=== PATIENT | male | born 1945 | race Caucasian/White ===

== ENCOUNTER → 2017-10-23 | Outpatient (CLI) | payer MEDICARE, OTHER ==
[~2017-10-23] MED LIST: ACTONEL; ALEN70TA47 PO; AMLO10TA82 PO; ATEN100T88 PO; ATN50T; CLR7.5T; FLUO20CA25 PO; FLX20C; GLYB5TAB6 PO; HCT25T; HYDR1TAB PO; LISI40TA PO; LORA1TAB5 PO; LSRT50T; MTF500T PO; NORVASC; OMEP20CA12; PNT40TEC PO; SIMV20TA3 PO; TRM50T PO
[2017-10-23 15:15] LABS: ALANINE AMINOTRANSFERASE 99 U/L (0-55); ALBUMIN 4.4 GM/DL (3.2-4.5); ALKALINE PHOSPHATASE 78 U/L (40-136); BILIRUBIN,TOTAL 0.9 MG/DL (0.1-1.0); BUN/CREATININE RATIO 13; CALCIUM 9.5 MG/DL (8.5-10.1); CARBON DIOXIDE 18 MMOL/L (21-32); CHLORIDE 106 MMOL/L (98-107); CHOLESTEROL 175 MG/DL (< 200); CREATININE SERUM 0.89 MG/DL (0.60-1.30); GFR ESTIMATED > 60; GLUCOSE 107 MG/DL (70-105); HDL CHOLESTEROL 47 MG/DL (40-60); POTASSIUM 4.5 MMOL/L (3.6-5.0); SODIUM 137 MMOL/L (135-145); TOTAL PROTEIN 7.8 GM/DL (6.4-8.2); TRIGLYCERIDES 179 MG/DL (<150); VLDL CHOLESTEROL 36 MG/DL (5-40)
== END ==
LOC: LAB 14:35
PROVIDERS: ATTEND Family Medicine
DX: E11.9 Type 2 diabetes mellitus without complications (principal); I10 Essential (primary) hypertension
CPT/HCPCS: 36415; 80053; 80061; 83036

== ENCOUNTER → 2018-04-28 | Outpatient (CLI) | payer MEDICARE ==
[2018-04-28 14:42] LABS: ALANINE AMINOTRANSFERASE 75 U/L (0-55); ALBUMIN 4.3 GM/DL (3.2-4.5); ALKALINE PHOSPHATASE 79 U/L (40-136); BILIRUBIN,TOTAL 0.8 MG/DL (0.1-1.0); BUN/CREATININE RATIO 15; CALCIUM 9.6 MG/DL (8.5-10.1); CARBON DIOXIDE 18 MMOL/L (21-32); CHLORIDE 105 MMOL/L (98-107); CREATININE SERUM 0.88 MG/DL (0.60-1.30); GFR ESTIMATED > 60; GLUCOSE 95 MG/DL (70-105); POTASSIUM 4.6 MMOL/L (3.6-5.0); SODIUM 137 MMOL/L (135-145); TOTAL PROTEIN 7.8 GM/DL (6.4-8.2)
== END ==
LOC: LAB 14:01
PROVIDERS: ATTEND Family Medicine
DX: E11.9 Type 2 diabetes mellitus without complications (principal); I10 Essential (primary) hypertension; R74.8 Abnormal levels of other serum enzymes
CPT/HCPCS: 36415; 80053; 83036

== ENCOUNTER → 2019-04-27 | Outpatient (CLI) | payer MEDICARE ==
[2019-04-27 15:39] LABS: ALANINE AMINOTRANSFERASE 62 U/L (0-55); ALBUMIN 4.4 GM/DL (3.2-4.5); ALKALINE PHOSPHATASE 72 U/L (40-136); BUN/CREATININE RATIO 11; CALCIUM 9.6 MG/DL (8.5-10.1); CARBON DIOXIDE 22 MMOL/L (21-32); CHLORIDE 105 MMOL/L (98-107); CHOLESTEROL 167 MG/DL (< 200); CREATININE SERUM 1.04 MG/DL (0.60-1.30); GFR ESTIMATED > 60; GLUCOSE 102 MG/DL (70-105); HDL CHOLESTEROL 51 MG/DL (40-60); POTASSIUM 4.8 MMOL/L (3.6-5.0); SODIUM 137 MMOL/L (135-145); TOTAL PROTEIN 7.8 GM/DL (6.4-8.2); TRIGLYCERIDES 158 MG/DL (<150); VLDL CHOLESTEROL 32 MG/DL (5-40)
== END ==
LOC: LAB 15:00
PROVIDERS: ATTEND Family Medicine
DX: E78.5 Hyperlipidemia, unspecified (principal); E11.9 Type 2 diabetes mellitus without complications; I10 Essential (primary) hypertension
CPT/HCPCS: 36415; 80053; 80061; 83036

== ENCOUNTER → 2019-10-28 | Outpatient (CLI) | payer MEDICARE ==
[2019-10-28 11:38] LABS: ALBUMIN 4.5 GM/DL (3.2-4.5); CHLORIDE 104 MMOL/L (98-107); POTASSIUM 4.7 MMOL/L (3.6-5.0); SODIUM 138 MMOL/L (135-145)
[2019-10-28 11:39] LABS: CALCIUM 9.5 MG/DL (8.5-10.1)
[2019-10-28 11:40] LABS: TOTAL PROTEIN 8.2 GM/DL (6.4-8.2); TRIGLYCERIDES 210 MG/DL (<150); VLDL CHOLESTEROL 42 MG/DL (5-40)
[2019-10-28 11:41] LABS: CARBON DIOXIDE 23 MMOL/L (21-32); GLUCOSE 129 MG/DL (70-105)
[2019-10-28 11:44] LABS: ALKALINE PHOSPHATASE 74 U/L (40-136); CREATININE SERUM 0.97 MG/DL (0.60-1.30); GFR ESTIMATED > 60
[2019-10-28 11:45] LABS: BUN/CREATININE RATIO 14; CHOLESTEROL 165 MG/DL (< 200)
[2019-10-28 11:46] LABS: HDL CHOLESTEROL 50 MG/DL (40-60)
[2019-10-28 11:47] LABS: ALANINE AMINOTRANSFERASE 63 U/L (0-55)
== END ==
LOC: LAB 10:55
PROVIDERS: ATTEND Family Medicine
DX: E11.9 Type 2 diabetes mellitus without complications (principal); N40.0 Benign prostatic hyperplasia without lower urinary tract symptoms; I10 Essential (primary) hypertension
CPT/HCPCS: 36415; 80053; 80061; 83036; 84153

== ENCOUNTER 2023-03-14 05:27 | Outpatient (CLI) | payer MEDICARE ==
[~2023-03-14] VITALS: Ht 177.8 cm; Wt 99.1 kg
[2023-03-14] MEDS ORDERED: BACI1TAB24 PO (08:41)
[2023-03-14] MEDS ORDERED: COLE625T14 PO (08:41)
[2023-03-14] MEDS ORDERED: EMPA10TA PO (08:41)
[2023-03-14] MEDS ORDERED: ATOR20TA66 PO (08:41)
[2023-03-14] MEDS ORDERED: PSYL3.4P5 PO (08:41)
== END 2023-03-14 08:49 | disposition home or self-care (01) ==
LOC: PREOP 05:27
PROVIDERS: ATTEND Specialist
DX: Z01.818 Encounter for other preprocedural examination (principal)

== ENCOUNTER 2023-03-21 05:49 | Day surgery (SDC) | payer MEDICARE ==
[~2023-03-21] VITALS: Ht 177.8 cm; Wt 99.1 kg
[~2023-03-21 05:49] MED LIST changes: +ATOR20TA66 PO; +BACI1TAB24 PO; +COLE625T14 PO; +EMPA10TA PO; +PSYL3.4P5 PO
[2023-03-21] MEDS: TETRACAINE 0.5% OPHTH SOLN 4 ML BTL (SINGLE DOSE ONLY) OU PRN ×4 (06:09→06:43)
[2023-03-21] MEDS ORDERED: POVIDONE IODINE OPHTH SOLN 5% 30 ML OP ONE (06:15)
[2023-03-21] MEDS ORDERED: MOXIFLOXACIN OPHTH SOLN 5 MG/ML 0.5 ML SYRINGE OP ONE (06:15)
[2023-03-21] MEDS ORDERED: LIDOCAINE PF 1% 2 ML VIAL IR PRN (06:15)
[2023-03-21] MEDS ORDERED: TIMOLOL 0.5% (CATARACTS) 0.3 ML BTL OU PRN (06:15)
[2023-03-21] MEDS: TROPICAMIDE 1% OPH SOLN (MYDRIACYL) 15 ML BTL OP SCH ×3 (06:23→06:44)
[2023-03-21] MEDS: PHENYLEPHRINE 10% OPHTH SOLN 5 ML BTL OU SCH ×3 (06:23→06:43)
[2023-03-21 06:26] VITALS: BP 153/78
[2023-03-21] MEDS ORDERED: MIDAZOLAM INJ 2 MG/2 ML VIAL ONE (07:08)
--- NOTE | 2023-03-21 07:11 | Ophthalmologist Pre-Op Note ---
Pre-Operative Progress Note H&P Reviewed The H&P was reviewed, patient examined and no changes noted. Date H&P Reviewed: Mar 21, 2023 Time H&P Reviewed: 07:01 Pre-Op Dx Cataract, Left Eye SABRINA LEBLANC MD Mar 21, 2023 07:11
--- NOTE | 2023-03-21 07:27 | Ophthalmology Operative Report ---
Cataract removal/placement IOL PREOPERATIVE DIAGNOSIS: Cataract Left Eye POSTOPERATIVE DIAGNOSIS: Cataract Left Eye PROCEDURE: Cataract removal and placement of posterior chamber implant, left eye SURGEON: Yang Leblanc ANESTHESIA: Topical with sedation COMPLICATIONS: None ESTIMATED BLOOD LOSS: Minimal DESCRIPTION OF PROCEDURE: After proper informed consent was obtained, the patient, a 77 male, was taken to the Operating Room and the left eye was anesthetized with tetracaine. The left eye was then prepped and draped in the usual manner. A wire lid speculum was placed. A paracentesis was made at the left hand position. Preservative free lidocaine was injected into the anterior chamber followed by viscoelastic. A clear corneal incision was made in the temporal position. A capsulorrhexis was preformed and the central nuclear and cortical material were removed. The posterior capsule was polished and an Bennett 20.0 [id number] was placed into the capsular bag. The residual viscoelastic was aspirated and balanced saline solution was injected into the anterior chamber. Moxifloxacin was injected into the anterior chamber. The wound was checked and found to be water tight. The patient tolerated the procedure well without complications. YANG LEBLANC MD Mar 21, 2023 07:27
[2023-03-21 07:31] VITALS: BP 141/70
--- NOTE | 2023-03-21 12:08 | Anesthesia-General Post-Op ---
MAC Patient Condition Mental Status/LOC: Same as Preop Cardiovascular: Satisfactory Nausea/Vomiting: Absent Respiratory: Satisfactory Pain: Controlled Complications: Absent Post Op Complications Complications None Follow Up Care/Instructions Patient Instructions None needed. Anesthesiology Discharge Order Discharge Order Patient is doing well, no complaints, stable vital signs, no apparent adverse anesthesia problems. No complications reported per nursing. JOHAN SARGENT CRNA Mar 21, 2023 12:08
== END 2023-03-21 07:35 | disposition home or self-care (01) ==
LOC: SDC 05:49
PROVIDERS: ATTEND Specialist
DX: E11.36 Type 2 diabetes mellitus with diabetic cataract (principal); H25.9 Unspecified age-related cataract; Z79.84 Long term (current) use of oral hypoglycemic drugs
CPT/HCPCS: 66984; 82947; V2632

== ENCOUNTER 2023-03-27 07:58 | Outpatient (CLI) | payer MEDICARE ==
[~2023-03-27] VITALS: Ht 177.8 cm; Wt 107.3 kg
== END 2023-03-27 16:05 | disposition home or self-care (01) ==
LOC: PREOP 07:58
PROVIDERS: ATTEND Specialist
DX: Z01.818 Encounter for other preprocedural examination (principal)

== ENCOUNTER 2023-04-04 06:07 | Day surgery (SDC) | payer MEDICARE ==
[~2023-04-04] VITALS: Ht 177 cm; Wt 107.3 kg
[2023-04-04 06:10] VITALS: BP 164/83
[2023-04-04] MEDS ORDERED: POVIDONE IODINE OPHTH SOLN 5% 30 ML OP ONE (06:15)
[2023-04-04] MEDS ORDERED: LIDOCAINE PF 1% 2 ML VIAL IR PRN (06:15)
[2023-04-04] MEDS ORDERED: TIMOLOL 0.5% (CATARACTS) 0.3 ML BTL OU PRN (06:15)
[2023-04-04] MEDS ORDERED: MOXIFLOXACIN OPHTH SOLN 5 MG/ML 0.5 ML SYRINGE OP ONE (06:15)
[2023-04-04] MEDS ORDERED: TETRACAINE 0.5% OPHTH SOLN 5 ML BTL OD ONE (06:20)
[2023-04-04] MEDS: TETRACAINE 0.5% OPHTH SOLN 4 ML BTL (SINGLE DOSE ONLY) OU PRN ×4 (06:20→06:31)
[2023-04-04] MEDS: TROPICAMIDE 1% OPH SOLN (MYDRIACYL) 15 ML BTL OP SCH ×3 (06:25→06:32)
[2023-04-04] MEDS: PHENYLEPHRINE 10% OPHTH SOLN 5 ML BTL OU SCH ×3 (06:26→06:32)
--- NOTE | 2023-04-04 06:51 | Ophthalmologist Pre-Op Note ---
Pre-Operative Progress Note H&P Reviewed The H&P was reviewed, patient examined and no changes noted. Date H&P Reviewed: Apr 04, 2023 Time H&P Reviewed: 06:50 Pre-Op Dx Cataract, Right Eye SABRINA LEBLANC MD Apr 04, 2023 06:51
[2023-04-04] MEDS ORDERED: MIDAZOLAM INJ 2 MG/2 ML VIAL ONE (06:56)
--- NOTE | 2023-04-04 07:17 | Ophthalmology Operative Report ---
Cataract removal/placement IOL PREOPERATIVE DIAGNOSIS: Cataract Right Eye POSTOPERATIVE DIAGNOSIS: Cataract Right Eye PROCEDURE: Cataract removal and placement of posterior chamber implant, right eye SURGEON: Yang Leblanc ANESTHESIA: Topical with sedation COMPLICATIONS: None ESTIMATED BLOOD LOSS: Minimal DESCRIPTION OF PROCEDURE: After proper informed consent was obtained, the patient, a 77 male, was taken to the Operating Room and the right eye was anesthetized with tetracaine. The right eye was then prepped and draped in the usual manner. A wire lid speculum was placed. A paracentesis was made at the left hand position. Preservative free lidocaine was injected into the anterior chamber followed by viscoelastic. A clear corneal incision was made in the temporal position. A capsulorrhexis was preformed and the central nuclear and cortical material were removed. The posterior capsule was polished and Bennett 20.5 [id number] IOL was placed into the capsular bag. The residual viscoelastic was aspirated and balanced saline solution was injected into the anterior chamber. Moxifloxacin was injected into the anterior chamber. The wound was checked and found to be water tight. The patient tolerated the procedure well without complications. YANG LEBLANC MD Apr 04, 2023 07:17
[2023-04-04 07:22] VITALS: BP 169/72
--- NOTE | 2023-04-04 12:42 | Anesthesia-General Post-Op ---
MAC Patient Condition Mental Status/LOC: Same as Preop Cardiovascular: Satisfactory Nausea/Vomiting: Absent Respiratory: Satisfactory Pain: Controlled Complications: Absent Post Op Complications Complications None Follow Up Care/Instructions Patient Instructions None needed. Anesthesiology Discharge Order Discharge Order Patient is doing well, no complaints, stable vital signs, no apparent adverse anesthesia problems. No complications reported per nursing. SANTOS MTZ CRNA Apr 04, 2023 12:42
== END 2023-04-04 07:26 | disposition home or self-care (01) ==
LOC: SDC 06:07
PROVIDERS: ATTEND Specialist
DX: E11.36 Type 2 diabetes mellitus with diabetic cataract (principal); H25.9 Unspecified age-related cataract; Z79.84 Long term (current) use of oral hypoglycemic drugs
CPT/HCPCS: 66984; 82947; V2632

== ENCOUNTER 2023-04-05 13:51 | Inpatient (IN) | payer MEDICARE ==
[~2023-04-05] VITALS: Ht 175 cm; Wt 99.7 kg
--- NOTE | 2023-04-05 14:11 | ED General ---
General Chief Complaint: Abdominal/GI Problems Stated Complaint: N/V/D Nursing Triage Note: N/V/D SINCE LAST NIGHT. PT REPORTS DRY COUGH. PT HAD CATARACT SURGERY YESTERDAY SO EYE PATCH ON RT EYE PRESENT. Source of Information: Patient Exam Limitations: No Limitations History of Present Illness Date Seen by Provider: Apr 05, 2023 Time Seen by Provider: 13:57 Initial Comments Here with report of having cataract surgery yesterday and started having dry cough and chills overnight and then fever, chills and weakness today. Reports that he is vaccinated for flu and did have the COVID series vaccinations but not the one this year. He has not had COVID previously. Denies nausea or vomiting but complains of significant weakness and feels dry. Denies diarrhea. Timing/Duration: 24 Hours, Getting Worse Severity: Moderate Associated Systoms: Cough, Fever/Chills, Shortness of Air, Weakness Allergies and Home Medications Allergies Uncoded Allergies: SULFA (Allergy, Unknown, HIVES, 04/05/23) Patient Home Medication List Home Medication List Reviewed: Yes Amlodipine Besylate (Norvasc Tablet) 10 Mg Tablet, 1 EACH PO DAILY, (Reported) Entered as Reported by: MYRIAM COLE on 06/12/12 1231 Atenolol (Tenormin 100 Mg) 100 Mg Tablet, 1 EACH PO DAILY, (Reported) Entered as Reported by: MYRIAM COLE on 06/12/12 0922 Atorvastatin Calcium (Atorvastatin Calcium) 20 Mg Tablet, 20 MG PO HS, (Reported) Entered as Reported by: Ness De Los Santos on 03/14/23 0841 Bacillus Coagulans (Probiotic) 1 Billion Cell Tab.chew, 1 EACH PO DAILY, (Reported) Entered as Reported by: Ness De Los Santos on 03/14/23 0841 Colesevelam HCl (Colesevelam HCl) 625 Mg Tablet, 625 MG PO BID, (Reported) Entered as Reported by: Ness De Los Santos on 03/14/23 0841 Empagliflozin (Jardiance) 10 Mg Tablet, 10 MG PO DAILY, (Reported) Entered as Reported by: Ness De Los Santos on 03/14/23 0841 Lisinopril (Prinivil) 40 Mg Tablet, 40 MG PO DAILY, (Reported) Entered as Reported by: MYRIAM COLE on 06/12/12 1231 Loratadine/Pseudoephedrine (Claritin-D 24 Hour Tab Er) 1 Tab.sr .24 H Tab.sr.24h, 1 EACH PO DAILY, (Reported) Entered as Reported by: MYRIAM COLE on 06/12/12 1231 Psyllium Husk/Aspartame (Metamucil Fiber Singles Packet) 3.4 Gram Powd.pack, 3.4 GM PO DAILY, (Reported) Entered as Reported by: Ness De Los Santos on 03/14/23 0841 Review of Systems Review of Systems Constitutional: see HPI, chills, fever EENTM: nose congestion Respiratory: cough, short of breath Cardiovascular: No chest pain Gastrointestinal: No nausea, No vomiting Genitourinary: no symptoms reported Musculoskeletal: muscle pain Psychiatric/Neurological: Weakness Past Hsnjssb-Vudlfu-Wkktga Hx Patient Social History Tobacco Use?: No Use of E-Cig and/or Vaping dev: No Substance use?: No Alcohol Use?: No Past Medical History Surgeries: Yes Eye Surgery Respiratory: No Cardiac: Yes Hypertension Reproductive Disorders: No Gastrointestinal: No Diabetes, Non-Insulin dep HEENT: Yes Cataract Anxiety, Depression Physical Exam-Suspected Sepsis Physical Exam Vital Signs Vital Signs - First Documented 04/05/23 13:53 Temp 38.7 Pulse 78 Resp 20 B/P (MAP) 171/90 (117) Pulse Ox 98 O2 Delivery Room Air Capillary Refill : Less Than 3 Seconds Blood Pressure Mean: 117 Height, Weight, BMI Height: '" Weight: lbs. oz. kg; 32.00 BMI Method:Stated General Appearance: WD/WN, Mild Distress HEENT: PERRL/EOMI, Pharynx Normal Neck: Non Tender, Supple Respiratory: Lungs Clear, Normal Breath Sounds, Other (Coarse cough) Cardiovascular: Regular Rate, Rhythm, No Murmur Gastrointestinal: Non Tender, Soft Extremity: Normal Range of Motion, Non Tender Neurologic/Psychiatric: Alert, Oriented x3 Skin: pallor Comments Eye shield over right Focused Exam Lactate Level 04/05/23 14:10: Lactic Acid Level 1.68 Lactic Acid Level Laboratory Tests Test 04/05/23 14:10 Lactic Acid Level 1.68 MMOL/L (0.50-2.00) Progress/Results/Core Measures Suspected Sepsis SIRS Temperature: Pulse: 78 Respiratory Rate: 20 Laboratory Tests 04/05/23 14:10: White Blood Count 9.2 Blood Pressure 171 /90 Mean: 117 04/05/23 14:10: Lactic Acid Level 1.68 Laboratory Tests 04/05/23 14:10: Creatinine 0.94, INR Comment 1.3, Platelet Count 126L, Total Bilirubin 1.4H Results/Orders Lab Results Laboratory Tests Test 04/05/23 14:10 04/05/23 15:52 Range/Units White Blood Count 9.2 4.3-11.0 10^3/uL Red Blood Count 4.55 4.30-5.52 10^6/uL Hemoglobin 12.8 L 13.3-17.7 g/dL Hematocrit 40 40-54 % Mean Corpuscular Volume 88 80-99 fL Mean Corpuscular Hemoglobin 28 25-34 pg Mean Corpuscular Hemoglobin Concent 32 32-36 g/dL Red Cell Distribution Width 15.1 H 10.0-14.5 % Platelet Count 126 L 130-400 10^3/uL Mean Platelet Volume 10.1 9.0-12.2 fL Immature Granulocyte % (Auto) 0 % Neutrophils (%) (Auto) 77 H 42-75 % Lymphocytes (%) (Auto) 16 12-44 % Monocytes (%) (Auto) 6 0-12 % Eosinophils (%) (Auto) 0 0-10 % Basophils (%) (Auto) 0 0-10 % Neutrophils # (Auto) 7.1 1.8-7.8 10^3/uL Lymphocytes # (Auto) 1.5 1.0-4.0 10^3/uL Monocytes # (Auto) 0.6 0.0-1.0 10^3/uL Eosinophils # (Auto) 0.0 0.0-0.3 10^3/uL Basophils # (Auto) 0.0 0.0-0.1 10^3/uL Immature Granulocyte # (Auto) 0.0 0.0-0.1 10^3/uL Percent Immature Platelet Fraction 2.2 0.0-7.6 % Prothrombin Time 17.0 H 12.2-14.7 SEC INR Comment 1.3 0.8-1.4 Activated Partial Thromboplast Time 30 24-35 SEC Sodium Level 134 L 135-145 MMOL/L Potassium Level 4.5 3.6-5.0 MMOL/L Chloride Level 104 98-107 MMOL/L Carbon Dioxide Level 21 21-32 MMOL/L Anion Gap 9 5-14 MMOL/L Blood Urea Nitrogen 15 7-18 MG/DL Creatinine 0.94 0.60-1.30 MG/DL Estimat Glomerular Filtration Rate 83 BUN/Creatinine Ratio 16 Glucose Level 95 70-105 MG/DL Lactic Acid Level 1.68 0.50-2.00 MMOL/L Calcium Level 8.6 8.5-10.1 MG/DL Corrected Calcium 9.2 8.5-10.1 MG/DL Total Bilirubin 1.4 H 0.1-1.0 MG/DL Aspartate Amino Transf (AST/SGOT) 39 H 5-34 U/L Alanine Aminotransferase (ALT/SGPT) 30 0-55 U/L Alkaline Phosphatase 270 H 40-136 U/L C-Reactive Protein High Sensitivity 3.73 H 0.00-0.50 MG/DL Total Protein 7.4 6.4-8.2 GM/DL Albumin 3.3 3.2-4.5 GM/DL Influenza Type A (RT-PCR) Not Detected Not Detecte Influenza Type B (RT-PCR) Not Detected Not Detecte SARS-CoV-2 RNA (RT-PCR) Detected H Not Detecte My Orders Orders - FIDELIA TAVARES MD Cbc And Automated Diff (04/05/23 14:06) Comprehensive Metabolic Panel (04/05/23 14:06) Blood Culture (04/05/23 14:06) Sputum Culture (04/05/23 14:06) Urinalysis (04/05/23 14:06) Urine Culture (04/05/23 14:06) Protime With Inr (04/05/23 14:06) Partial Thromboplastin Time (04/05/23 14:06) Chest 1 View, Ap/Pa Only (04/05/23 14:06) Ed Iv/Invasive Line Start (04/05/23 14:06) Vital Signs Adult Sepsis Patie Q15M (04/05/23 14:06) O2 (04/05/23 14:06) Remove Rings In Anticipation O (04/05/23 14:06) Lactic Acid Analyzer (04/05/23 14:06) Influenza A And B By Pcr (04/05/23 14:06) Ed Iv/Invasive Line Start (04/05/23 14:06) Ns Iv 500 Ml (Ns Iv 500 Ml) (04/05/23 14:15) Hs C Reactive Protein (04/05/23 14:06) Covid 19 Inhouse Test (04/05/23 14:06) Ns Iv 500 Ml (Ns Iv 500 Ml) (04/05/23 15:30) Acetaminophen Tablet (Acetaminophen Ta (04/05/23 15:17) Code/Resuscitation (04/05/23 15:50) Ed Admission (Communication) (04/05/23 15:50) Medications Given in ED Current Medications Medications Dose Ordered Sig/Joelle Route Start Time Stop Time Status Last Admin Dose Admin Sodium Chloride 500 ml @ 0 mls/hr Q0M ONCE IV 04/05/23 14:15 04/05/23 14:16 DC 04/05/23 14:15 0 MLS/HR Sodium Chloride 500 ml @ 0 mls/hr Q0M ONCE IV 04/05/23 15:30 04/05/23 15:31 DC 04/05/23 15:30 0 MLS/HR Vital Signs/I&O 04/05/23 04/05/23 13:53 15:29 Temp 38.7 38.0 Pulse 78 Resp 20 B/P (MAP) 171/90 (117) Pulse Ox 98 O2 Delivery Room Air Capillary Refill : Less Than 3 Seconds Blood Pressure Mean: 117 Progress Note : Progress Note Seen and evaluated. Initiate sepsis protocol including IV, labs including CBC, CMP, coags, cultures, lactic acid, UA, influenza and COVID testing. We will also get CRP. Normal saline 500 mL bolus ordered. Chest x-ray ordered. Monitor patient. 1530: CBC shows normal white count with slightly low hemo globin and slightly low platelets but no left shift. Coags show slightly elevated PTT but normal INR. Chemistries show grossly normal CMP with slightly elevated alk phos and normal lactic acid. CRP is elevated at 3.7. Influenza is negative and COVID is positive. We are pending UA. Chest x-ray shows some basilar atelectasis without infiltrate on my interpretation. Patient has been unable to urinate. We will go ahead and give a repeat dose of normal saline 500 mL bolus. 1544: Given COVID positive status and patient's increased weakness and that he lives alone, we will go ahead and admit the patient. I did discuss CODE STATUS with the patient and he is requesting DNR. I did discuss the case with family life educator on-call Dr. Huggins, who accepts patient for admission, observation status. Discussed with patient who agrees with plan. Pending UA. Inpatient team to follow. Diagnostic Imaging Diagonstic Imaging: Xray Plain Films/CT/US/NM/MRI: chest Comments [facility] [place], [place] NAME: SEAN BATISTA [facility] REC#: [id number] PT STATUS: REG ER : 1945 PHYSICIAN: FIDELIA TAVARES MD ADMIT DATE: 04/05/23/ER Signed Date of Exam:04/05/23 CHEST 1 VIEW, AP/PA ONLY INDICATION: Nausea, vomiting, diarrhea, cough. FINDINGS: There is elevated right diaphragm. There is some patchy bibasilar atelectasis. Heart size upper limits. IMPRESSION: Limited inspiration with an elevated right diaphragm and mild basilar atelectasis. Dictated by: Dictated on workstation # [id number] Dict: 04/05/23 1437 Trans: 04/05/23 1501 [id number] Interpreted by: ANGEL LUIS PRINGLE Electronically signed by: ANGEL LUIS PRINGLE 04/05/23 1501 Departure Communication (Admissions) Time/Spoke to Admitting Phy: 15:44 Impression Primary Impression: COVID-19 Additional Impressions: Weakness Dehydration Disposition: ADMITTED INPATIENT Condition: Stable Admissions Decision to Admit Reason: Admit from ER (General) Decision to Admit/Date: Apr 05, 2023 Time/Decision to Admit Time: 15:44 Departure-Patient Inst. Referrals: BOLIVAR MIRANDA MD (PCP/Family) Primary Care Physician FIDELIA TAVARES MD Apr 05, 2023 14:11
[2023-04-05] MEDS ORDERED: NS IV 500 ML 500 ML IV ONE ×2 (14:15→15:30)
[2023-04-05 14:25] LABS: BASOPHILS % (AUTO) 0 % (0-10); HEMOGLOBIN 12.8 g/dL (13.3-17.7); MONOCYTES # (AUTO) 0.6 10^3/uL (0.0-1.0)
[2023-04-05 14:27] LABS: EOSINOPHILS % (AUTO) 0 % (0-10); HEMATOCRIT 40 % (40-54); LYMPHOCYTES # (AUTO) 1.5 10^3/uL (1.0-4.0); LYMPHOCYTES % (AUTO) 16 % (12-44); MEAN CORPUSCULAR HEMOGLOBIN 28 pg (25-34); MEAN CORPUSCULAR HGB CONC 32 g/dL (32-36); MEAN CORPUSCULAR VOLUME 88 fL (80-99); MEAN PLATELET VOLUME 10.1 fL (9.0-12.2); MONOCYTES % (AUTO) 6 % (0-12); NEUTROPHILS # (AUTO) 7.1 10^3/uL (1.8-7.8); NEUTROPHILS % (AUTO) 77 % (42-75); PLATELET COUNT 126 10^3/uL (130-400); WHITE BLOOD COUNT 9.2 10^3/uL (4.3-11.0)
[2023-04-05 14:29] LABS: ALBUMIN 3.3 GM/DL (3.2-4.5); POTASSIUM 4.5 MMOL/L (3.6-5.0)
[2023-04-05 14:30] LABS: CALCIUM 8.6 MG/DL (8.5-10.1); INR 1.3 (0.8-1.4)
[2023-04-05 14:31] LABS: TOTAL PROTEIN 7.4 GM/DL (6.4-8.2)
[2023-04-05 14:33] LABS: BILIRUBIN,TOTAL 1.4 MG/DL (0.1-1.0)
[2023-04-05 14:35] LABS: CREATININE SERUM 0.94 MG/DL (0.60-1.30)
--- NOTE | 2023-04-05 14:48 | Diagnostic Imaging Report ---
INDICATION: Nausea, vomiting, diarrhea, cough. FINDINGS: There is elevated right diaphragm. There is some patchy bibasilar atelectasis. Heart size upper limits. IMPRESSION: Limited inspiration with an elevated right diaphragm and mild basilar atelectasis. Dictated by: Dictated on workstation # [id number]
[2023-04-05] MEDS ORDERED: ACETAMINOPHEN 325 MG TABLET PO STA (15:17)
[2023-04-05 16:14] LABS: CLARITY,URINE CLEAR; COLOR,URINE YELLOW
[2023-04-05 16:15] LABS: BACTERIA,URINE TRACE /HPF; BILIRUBIN,URINE NEGATIVE (NEGATIVE); GLUCOSE, URINE (UA) 2+ (NEGATIVE); HYALINE CASTS, URINE RARE /LPF; KETONES,URINE TRACE (NEGATIVE); LEUKOCYTE ESTERASE ,URINE NEGATIVE (NEGATIVE); NITRITE,URINE NEGATIVE (NEGATIVE); PROTEIN,URINE TRACE (NEGATIVE); RBC,URINE RARE /HPF; WBC,URINE RARE /HPF
--- NOTE | 2023-04-05 16:40 | History & Physical-Hospitalist ---
ALISON VUONG MD, RESIDENT 04/05/23 1639: History of Present Illness HPI/Chief Complaint CC: Weakness Patient is a 77-year-old male with past medical history of diabetes, hypertension, IBS who presented with weakness. He states that he had cataract surgery on his right eye on Friday. After completing the surgery, he started to have swelling in his throat. He notes that he then developed fever and chills. He found it difficult to ambulate and walk around. He had significant weakness thus he presented to the ED for further evaluation. He does live alone at home. In the ED he was noted to have a fever to 38.7. His blood pressure was elevated as he has not been able to take his blood pressure medications as of yet this morning. CRP is elevated. Also noted to have mildly elevated liver enzymes. He was noted to be COVID-positive. Due to his weakness, he was ultimately admitted in observation status for further management. Of note, patient is DNR. Date Seen 04/05/23 Time Seen by a Provider: 15:30 Attending Physician Johnie Hernández MD PCP Admitting Physician: Jaylene Elizalde DO Attending Physician: Jaylene Elizalde DO Referring Physician Date of Admission Apr 05, 2023 at 16:13 Home Medications & Allergies Home Medications Reviewed patient Home Medication Reconciliation performed by pharmacy medication reconciliations chemical lab technician and/or nursing. Patients Allergies have been reviewed. Allergies Allergies Uncoded Allergies SULFA ( Allergy, Unknown, HIVES, 04/05/23) Past Mmmikqt-Qgskgy-Wvalsk Hx Patient Social History Tobacco Use?: No Use of E-Cig and/or Vaping dev: No Substance use?: No Alcohol Use?: No Immunizations Up To Date Date of Influenza Vaccine: Feb 01, 2012 Tetanus Booster (TDap): Unknown Hepatitis A: No Hepatitis B: No Date of Pneumonia Vaccine: Mar 02, 2010 Current Status Primary Language: Belarusian Past Medical History Surgeries: Eye Surgery Hypertension Diabetes, Non-Insulin dep Cataract Anxiety, Depression Review of Systems Constitutional: chills, fever, weakness EENTM: throat pain Respiratory: cough; No dyspnea on exertion, No short of breath Cardiovascular: No chest pain, No edema, No palpitations Gastrointestinal: No abdominal pain, No constipation, No diarrhea, No nausea, No vomiting Genitourinary: No dysuria Musculoskeletal: muscle weakness Skin: No no symptoms reported Psychiatric/Neurological: Denies No Symptoms Reported Physical Exam Physical Exam Vital Signs Vital Signs - First Documented 04/05/23 13:53 Temp 38.7 Pulse 78 Resp 20 B/P (MAP) 171/90 (117) Pulse Ox 98 O2 Delivery Room Air Capillary Refill : Less Than 3 Seconds Height, Weight, BMI Height: '" Weight: lbs. oz. kg; 32.00 BMI Method:Stated General Appearance: No Apparent Distress HEENT: Normal ENT Inspection, Other (Patch over right eye secondary to recent cataract surgery) Neck: Full Range of Motion, Supple Respiratory: Chest Non Tender, Lungs Clear, Normal Breath Sounds, No Accessory Muscle Use, No Respiratory Distress Cardiovascular: Regular Rate, Rhythm, No Edema, No Murmur Gastrointestinal: Normal Bowel Sounds, Non Tender, Soft Extremity: No Pedal Edema Neurologic/Psychiatric: Alert, Oriented x3 Skin: Normal Color, Warm/Dry Results Results/Procedures Labs Laboratory Tests 04/05/23 14:10 Patient resulted labs reviewed. Imaging: Reviewed Imaging Films, Reviewed Imaging Report Imaging Chest x-ray (04/05/2023): IMPRESSION: Limited inspiration with an elevated right diaphragm and mild basilar atelectasis. Assessment/Plan Admission Diagnosis COVID-positive, weakness Admission Status: Observation Diagnosis/Problems Diagnosis/Problems (1) COVID-19 Status: Acute Assessment & Plan: Patient is COVID-positive thus likely contributing to his overall weakness. Chest x-ray negative. CRP is elevated thus further supporting a viral picture. Elevated AST and alk phos may be secondary to COVID infection. Plan: Tylenol as needed for fevers Supportive care Fluids for dehydration (2) Weakness Status: Acute Assessment & Plan: Secondary to above. Will hold off on PT/OT consult to limit exposure. Anticipate that with improvement in symptoms, patient should have improvement in his weakness. (3) Dehydration Status: Acute Assessment & Plan: Fluids as per above. Noted to have a sodium of 134. (4) Hypertension Status: Chronic Assessment & Plan: Blood pressure a little bit elevated today. Plan: We will restart patient's home amlodipine We will restart rest of medications once med rec has been completed. (5) Type 2 diabetes mellitus Status: Chronic Assessment & Plan: On Jardiance at home. Plan: Sliding scale insulin (6) Age-related nuclear cataract, right eye Status: Acute Assessment & Plan: Patient surgeries to both eyes. Okay to use own med which is eyedrops. (7) Age-related nuclear cataract, left eye Status: Acute Assessment & Plan: See above JAYLENE ELIZALDE DO 04/06/23 1513: History of Present Illness HPI/Chief Complaint Chief complaint: Weakness and cough from COVID HPI: This is a 77-year-old male clinic patient of [facility] who presents with cough and weakness and found to have COVID. He had his right eye cataract removed on Friday and then became ill. Patient remains on supportive care. He also reports that he can no longer take care of himself and needs to be placed in a rehab facility Source: patient Exam Limitations: clinical condition (fatigue) Past Gbzftft-Ildwsj-Bkeugc Hx Patient Social History Marrital Status: single Employed/Student: retired Smoking Status: Unknown if Ever Smoked Past Medical History High Cholesterol, Hypertension Review of Systems Constitutional: see HPI, fever Respiratory: cough Physical Exam Physical Exam General Appearance: No Apparent Distress, Chronically ill Respiratory: No Accessory Muscle Use, No Respiratory Distress, Decreased Breath Sounds Cardiovascular: Regular Rate, Rhythm Neurologic/Psychiatric: Alert, Oriented x3, Depressed Affect Assessment/Plan Admission Diagnosis Assessment: Weakness from COVID Dehydration Recent right cataract removal Plan: Supportive care IV fluid Admission Status: Observation ALISON VUONG MD, RESIDENT Apr 05, 2023 16:39 JAYLENE ELIZALDE DO Apr 06, 2023 15:13
[2023-04-05] MEDS ORDERED: [UNRECOGNIZED DRUG - OTHER] MC PRN (16:45)
[2023-04-05] MEDS ORDERED: MILK OF MAGNESIA 400 MG/5 ML 30 ML UDC PO PRN (16:45)
[2023-04-05] MEDS ORDERED: LACTULOSE SYRUP 10GM/15ML 30ML UDC PO PRN (16:45)
[2023-04-05] MEDS ORDERED: NALOXONE 0.4 MG/ML 1 ML VIAL IV PRN (16:45)
[2023-04-05] MEDS ORDERED: ACETAMINOPHEN 325 MG TABLET PO PRN (16:45)
[2023-04-05] MEDS ORDERED: ONDANSETRON 4 MG ORAL DISSOLVE TABLET PO PRN (16:45)
[2023-04-05] MEDS ORDERED: CALCIUM CARBONATE 500 MG CHEW TABLET PO PRN (16:45)
[2023-04-05] MEDS ORDERED: ANTACID SUSPENSION 30 ML UDC PO PRN (16:45)
[2023-04-05] MEDS ORDERED: oxyCODONE IMMEDIATE RELEASE 5 MG TABLET PO PRN (16:45)
[2023-04-05] MEDS ORDERED: MELATONIN 3 MG TABLET PO PRN (16:45)
[2023-04-05] MEDS ORDERED: diphenhydrAMINE INJ 50 MG/ML VIAL IVP PRN (16:45)
[2023-04-05] MEDS ORDERED: BISACODYL 10 MG SUPPOSITORY PR PRN (16:45)
[2023-04-05] MEDS ORDERED: diphenhydrAMINE 25 MG TABLET PO PRN (16:45)
[2023-04-05] MEDS ORDERED: ONDANSETRON INJECTION 4 MG/2 ML (SDV) IV PRN (16:45)
[2023-04-05] MEDS ORDERED: PATIENT MAY USE OWN MED,SINGLE MED PO SCH (16:45)
[2023-04-05 17:14] VITALS: BP 147/80
[2023-04-05] MEDS: NS IV 1000 ML 1,000 ML IV SCH (18:07)
[2023-04-05] MEDS: ENOXAPARIN 40 MG/0.4 ML SYRINGE SC SCH (18:08)
[2023-04-05 20:05] VITALS: BP 142/65
[2023-04-05] MEDS: inSUlin ASPART 1 UNIT/0.01 ML (PER UNIT) SC SCH (21:24)
[2023-04-05] MEDS: SENNOSIDES 8.6 MG TABLET PO SCH (21:31)
[2023-04-05] MEDS: DOCUSATE SODIUM 100 MG CAPSULE PO SCH (21:31)
[2023-04-05] MEDS: ACETAMINOPHEN 500 MG TABLET PO SCH (21:42)
[2023-04-05 23:15] VITALS: BP 119/56
[2023-04-06 03:48] VITALS: BP 166/79
[2023-04-06] MEDS: NS IV 1000 ML 1,000 ML IV SCH ×3 (03:48→23:56)
--- NOTE | 2023-04-06 06:03 | Progress Note - Hospitalist ---
Subjective HPI/CC On Admission Date Seen by Provider: Apr 06, 2023 Time Seen by Provider: 11:00 CC: Weakness Patient is a 77-year-old male with past medical history of diabetes, hypertension, IBS who presented with weakness. He states that he had cataract surgery on his right eye on Friday. After completing the surgery, he started to have swelling in his throat. He notes that he then developed fever and chills. He found it difficult to ambulate and walk around. He had significant weakness thus he presented to the ED for further evaluation. He does live alone at home. In the ED he was noted to have a fever to 38.7. His blood pressure was elevated as he has not been able to take his blood pressure medications as of yet this morning. CRP is elevated. Also noted to have mildly elevated liver enzymes. He was noted to be COVID-positive. Due to his weakness, he was ultimately admitted in observation status for further management. Of note, patient is DNR. Subjective/Events-last exam Patient doing a lot better Needs group home placement Reviewed labs Not eating well Review of Systems General: Fatigue, Malaise Focused Exam Lactate Level 04/05/23 14:10: Lactic Acid Level 1.68 Objective Exam Vital Signs Vital Signs Date Time Temp Pulse Resp B/P (MAP) Pulse Ox O2 Delivery O2 Flow Rate FiO2 04/06/23 11:15 36.5 62 16 145/70 (95) 98 Room Air Capillary Refill : Less Than 3 Seconds General Appearance: No Apparent Distress, WD/WN, Chronically ill Respiratory: Lungs Clear, Normal Breath Sounds Cardiovascular: Regular Rate, Rhythm Neurologic/Psychiatric: Alert, Oriented x3, Depressed Affect Results/Procedures Lab Laboratory Tests 04/06/23 05:52 Patient resulted labs reviewed. Imaging: Reviewed Imaging Films, Reviewed Imaging Report Assessment/Plan Assessment and Plan Assess & Plan/Chief Complaint (1) COVID-19 Status: Acute Assessment & Plan: Patient is COVID-positive thus likely contributing to his overall weakness. Chest x-ray negative. CRP is elevated thus further supporting a viral picture. Elevated AST and alk phos may be secondary to COVID infection. Plan: Tylenol as needed for fevers Supportive care Fluids for dehydration (2) Weakness Status: Acute Assessment & Plan: Secondary to above. Will hold off on PT/OT consult to limit exposure. Anticipate that with improvement in symptoms, patient should have i mprovement in his weakness. (3) Dehydration Status: Acute Assessment & Plan: Fluids as per above. Noted to have a sodium of 134. (4) Hypertension Status: Chronic Assessment & Plan: Blood pressure a little bit elevated today. Plan: We will restart patient's home amlodipine We will restart rest of medications once med rec has been completed. (5) Type 2 diabetes mellitus Status: Chronic Assessment & Plan: On Jardiance at home. Plan: Sliding scale insulin (6) Age-related nuclear cataract, right eye Status: Acute Assessment & Plan: Patient surgeries to both eyes. Okay to use own med which is eyedrops. (7) Age-related nuclear cataract, left eye Status: Acute Assessment & Plan: See above LAUREN LAURA DO Apr 06, 2023 06:03
[2023-04-06 06:08] LABS: MEAN PLATELET VOLUME 9.8 fL (9.0-12.2); WHITE BLOOD COUNT 4.9 10^3/uL (4.3-11.0)
[2023-04-06] MEDS: inSUlin ASPART 1 UNIT/0.01 ML (PER UNIT) SC SCH ×4 (06:09→20:54)
[2023-04-06 06:14] LABS: POTASSIUM 4.1 MMOL/L (3.6-5.0)
[2023-04-06 06:15] LABS: CALCIUM 8.1 MG/DL (8.5-10.1)
[2023-04-06 06:16] LABS: TOTAL PROTEIN 6.9 GM/DL (6.4-8.2)
[2023-04-06] MEDS: ACETAMINOPHEN 500 MG TABLET PO SCH ×3 (06:16→21:04)
[2023-04-06 06:18] LABS: BILIRUBIN,TOTAL 0.4 MG/DL (0.1-1.0)
[2023-04-06 06:20] LABS: CREATININE SERUM 0.79 MG/DL (0.60-1.30)
[2023-04-06 08:07] VITALS: BP 153/70
[2023-04-06] MEDS: SENNOSIDES 8.6 MG TABLET PO SCH ×2 (09:05→19:58)
[2023-04-06] MEDS: DOCUSATE SODIUM 100 MG CAPSULE PO SCH ×2 (09:05→19:58)
[2023-04-06] MEDS: amLODIPine 5 MG TABLET PO SCH (09:09)
[2023-04-06 11:15] VITALS: BP 145/70
[2023-04-06] MEDS: PHENOL THROAT SPRAY 177 ML LIQUID MC SCH ×3 (12:00→21:03)
[2023-04-06 16:14] VITALS: BP 148/69
[2023-04-06] MEDS: ENOXAPARIN 40 MG/0.4 ML SYRINGE SC SCH (16:47)
[2023-04-06 20:06] VITALS: BP 160/76
[2023-04-06 23:44] VITALS: BP 144/70
[2023-04-07 04:59] VITALS: BP 157/93
[2023-04-07] MEDS: inSUlin ASPART 1 UNIT/0.01 ML (PER UNIT) SC SCH ×4 (05:45→20:38)
[2023-04-07] MEDS: ACETAMINOPHEN 500 MG TABLET PO SCH ×3 (05:45→22:28)
[2023-04-07 05:53] LABS: HEMOGLOBIN 12.2 g/dL (13.3-17.7)
[2023-04-07 05:54] LABS: MEAN PLATELET VOLUME 10.1 fL (9.0-12.2)
[2023-04-07 05:57] LABS: WHITE BLOOD COUNT 4.3 10^3/uL (4.3-11.0)
[2023-04-07] MEDS: NS IV 1000 ML 1,000 ML IV SCH (06:03)
[2023-04-07 06:11] LABS: ALBUMIN 2.8 GM/DL (3.2-4.5); POTASSIUM 3.7 MMOL/L (3.6-5.0)
[2023-04-07 06:12] LABS: CALCIUM 7.9 MG/DL (8.5-10.1)
[2023-04-07 06:14] LABS: TOTAL PROTEIN 6.7 GM/DL (6.4-8.2)
[2023-04-07 06:15] LABS: BILIRUBIN,TOTAL 0.8 MG/DL (0.1-1.0)
[2023-04-07 06:17] LABS: CREATININE SERUM 0.67 MG/DL (0.60-1.30)
[2023-04-07 08:03] VITALS: BP 147/95
--- NOTE | 2023-04-07 08:57 | Progress Note ---
ALISON VUONG MD, RESIDENT 04/07/23 0857: Subjective Subjective/Events-last exam Patient is doing well this morning. He states that he is feeling a little bit stronger compared to when he first came into the hospital. He is worried about discharge plan as he lives alone at home and has had recurrent falls this year. He feels that he would benefit from assisted living or senior living for safety reasons. He otherwise has no concerns today. Review of Systems General: No Fatigue; Appetite HEENT: No Head Aches Pulmonary: No Dyspnea, No Cough Cardiovascular: Edema (Edema at baseline); No: Chest Pain, Palpitations Gastrointestinal: No: Nausea, Vomiting, Diarrhea, Constipation Genitourinary: No Dysuria Neurological: Weakness Focused Exam Lactate Level 04/05/23 14:10: Lactic Acid Level 1.68 Objective Exam Last Set of Vital Signs Vital Signs Date Time Temp Pulse Resp B/P (MAP) Pulse Ox O2 Delivery O2 Flow Rate FiO2 04/07/23 08:03 36.1 90 18 147/95 (112) 98 Room Air Capillary Refill : Less Than 3 Seconds I&O Intake and Output 04/07/23 00:00 Intake Total 1090 ml Output Total 250 ml Balance 840 ml Intake Oral 1090 ml Output Urine Total 250 ml # Voids 6 General: Alert, Oriented X3 HEENT: Atraumatic, EOMI Neck: Supple, No Thyromegaly Lungs: Clear to Auscultation, Other (Little bit of decreased air movement in th e right lung field) Heart: Regular Rate, No Murmurs Abdomen: Normal Bowel Sounds, Soft, No Tenderness Extremities: Other (1+ peripheral edema bilaterally) Skin: No Rashes Neuro: Normal Speech Results/Procedures Lab Laboratory Tests 04/06/23 11:16: Glucometer 90 04/06/23 16:25: Glucometer 98 04/06/23 20:09: Glucometer 107 04/07/23 05:39: Glucometer 86 04/07/23 05:40: White Blood Count 4.3, Red Blood Count 4.34, Hemoglobin 12.2L, Hematocrit 38L, Mean Corpuscular Volume 87, Mean Corpuscular Hemoglobin 28, Mean Corpuscular Hemoglobin Concent 32, Red Cell Distribution Width 15.0H, Platelet Count 82L, Mean Platelet Volume 10.1, Percent Immature Platelet Fraction 2.1, Sodium Level 133L, Potassium Level 3.7, Chloride Level 107, Carbon Dioxide Level 19L, Anion Gap 7, Blood Urea Nitrogen 9, Creatinine 0.67, Estimat Glomerular Filtration Rate 96, BUN/Creatinine Ratio 13, Glucose Level 86, Calcium Level 7.9L, Corrected Calcium 8.9, Total Bilirubin 0.8, Aspartate Amino Transf (AST/SGOT) 46H, Alanine Aminotransferase (ALT/SGPT) 30, Alkaline Phosphatase 220H, Total Protein 6.7, Albumin 2.8L Microbiology 04/05/23 Urine Culture - Final, Complete NO GROWTH 04/05/23 Blood Culture - Preliminary, Resulted Assessment/Plan Assessment/Plan Admission Dx COVID, weakness Admission Status: Inpatient Order (span 2 midnights) Reason for Inpatient Admission: COVID-positive, weakness, inpatient admission needed for safe discharge plan (1) COVID-19 Status: Acute Assessment & Plan: Patient is COVID-positive thus likely contributing to his overall weakness. Chest x-ray negative. CRP is elevated thus further supporting a viral picture. Elevated AST and alk phos may be secondary to COVID infection. Mild worsening of AST this morning however alk phos appears to be improving, will continue to monitor. Plan: Tylenol as needed for fevers Supportive care (2) Weakness Status: Chronic Assessment & Plan: Secondary to above. May also have weakness at baseline given that patient was expressing he has had a couple falls this year already. Plan: PT/OT consulted, appreciate recommendations Anticipate discharge to senior living/assisted living facility for safety (3) Dehydration Status: Acute Assessment & Plan: Patient tolerating oral intake. Sodium worsening from 135 to 133 this morning. May be due to dilution. Plan: Discontinue fluids this morning Monitor daily CMP (4) Hypertension Status: Chronic Assessment & Plan: Blood pressure continues to be mildly elevated. Plan: Continue home amlodipine 10 mg daily Restarted lisinopril 40 mg daily. If blood pressure continues to be elevated, will restart patient's home atenolol. (5) Type 2 diabetes mellitus Status: Chronic Assessment & Plan: On Jardiance at home. Sugars well controlled at this time. We will hold home medication for now. Plan: Sliding scale insulin (6) Age-related nuclear cataract, right eye Status: Chronic Assessment & Plan: Patient had cataract surgeries recently to both eyes. Okay to use own med which is eyedrops. (7) Age-related nuclear cataract, left eye Status: Chronic Assessment & Plan: See above JULIO CHIU MD 04/07/23 1238: Supervisory-Addendum Brief Supervisory Addendum I personally performed the myers portions of the visit, discussed case with resident and concur with resident documentation of history, physical exam, assessment and treatment plan unless otherwise noted. ALISON VUONG MD, RESIDENT Apr 07, 2023 08:57 JULIO CHIU MD Apr 07, 2023 12:38
[2023-04-07] MEDS: amLODIPine 5 MG TABLET PO SCH (09:24)
[2023-04-07] MEDS: PHENOL THROAT SPRAY 177 ML LIQUID MC SCH ×4 (09:25→20:34)
[2023-04-07] MEDS: DOCUSATE SODIUM 100 MG CAPSULE PO SCH ×2 (09:45→20:34)
[2023-04-07] MEDS: SENNOSIDES 8.6 MG TABLET PO SCH ×2 (09:45→20:35)
[2023-04-07] MEDS ORDERED: AMLO-251 PO (10:05)
[2023-04-07] MEDS ORDERED: ATEN100T PO (10:05)
[2023-04-07] MEDS ORDERED: LISI40TA9 PO (10:05)
[2023-04-07] MEDS ORDERED: ATOR20TA66 PO (10:05)
[2023-04-07] MEDS ORDERED: LORA10TA76 PO (10:07)
--- NOTE | 2023-04-07 11:12 | Physical Therapy Evaluation ---
PT Evaluation-General Medical Diagnosis Admission Date Apr 07, 2023 at 10:20 Medical Diagnosis: COVID Onset Date: Apr 04, 2023 Therapy Diagnosis Therapy Diagnosis: Weakness Precautions Precautions/Isolations: Contact Isolation, Droplet Isolation, Fall Prevention Referral Physician: Jaylene Elizalde MD Reason for Referral: Evaluation/Treatment Medical History Pertinent Medical History: HTN Additional Medical History IBS; progressive loss of strength, back pain Current History Pt had cataract surgery 04/04/23. He returned home but coby having weakness with increased difficulty walking. Pt found to be COVID positive and admitted for care. Reviewed History: Yes Social History Home: Single Level Current Living Status: Alone Prior Prior Level of Function SCALE: Activities may be completed with or without assistive devices. 8-Kbjfwxxxri-dukhtiy completes the activity by him/herself with no assistance from a helper. 5-Set-up or Clean-up Assistance-helper sets up or cleans up; patient completes activity. [place] assists only prior to or following the activity. 4-Supervision or Touching Assistance-helper provides verbal cues and/or touching/steadying and/or contact guard assistance as patient completes activity. Assistance may be provided throughout the activity or intermittently. 3-Partial/Moderate Assistance-helper does LESS THAN HALF the effort. [place] lifts, holds or supports trunk or limbs, but provides less than half the effort. 2-Substantial/Maximal Assistance-helper does MORE THAN HALF the effort. [place] lifts or holds trunk or limbs and provides more than half the effort. 3-Xsadpqjqz-zendwk does ALL the effort. Patient does none of the effort to complete the activity. Or, the assistance of 2 or more helpers is required for the patient to complete the activity. If activity was not attempted, code reason: 7-Patient Refused. 9-Not Applicable-not attempted and the patient did not perform the activity before the current illness, exacerbation or injury. 10-Not Attempted due to Environmental Limitations-(lack of equipment, weather restraints, etc.). 88-Not Attempted due to Medical Conditions or Safety Concerns. Bed Mobility: 6 Transfers (B,C,W/C): 6 Gait: 6 Prior Device Use: cane PT Evaluation-Current Subjective Pt reports he has been gradually getting weaker for around the past 5 years. No specific diagnosis, just complications of his diabetes. Objective Patient Orientation: Normal For Age ROM/Strength Strength Lower Extremities gross 4/5 Sensory Vision: Functional Hearing: Functional Sensation Right Lower Extremit: Impaired Sensation Left Lower Extremity: Impaired Transfers Roll Left to Right (QC): 6 Sit to Lying (QC): 6 Lying to Sitting/Side of Bed(Q: 6 Sit to Stand (QC): 6 Chair/Fma-oi-Odtnd Xfer(QC): 6 Gait Does the Patient Walk?: Yes Mode of Locomotion: Walk Anticipated Mode of Locomotion: Walk Walk 10 feet (QC): 4 Distance: 20 Gait Assistive Device: Handheld Assist Comments/Gait Description Walked 20ft with hand held assist. Pt stopped to rest due to generalized fatigue. Pt is a furniture walker at home. Balance Sitting Static: Normal Sitting Dynamic: Normal Standing Static: Fair Standing Dynamic: Poor Assessment/Needs Pt has generalized weakness and fatigue secondary to COVID and inactivity at home. He is currently unsteady during gait and at risk of falling due to fatigue and weakness. He will benefit from PT to improve strength and mobility for return to home. Rehab Potential: Fair PT Short Term Goals Short Term Goals Time Frame: Apr 09, 2023 Roll Left & Right: 6 Sit to lyin Lying to sitting on side of be: 6 Sit to stand: 6 Chair/dbb-bp-vavdg transfer: 6 Walk 50 feet with two turns: 6 PT Hot Wire Glass Tube Cutter Goals Hot Wire Glass Tube Cutter Goals PT Assisted Goals Time Frame: Apr 11, 2023 Roll Left & Right (QC): 6 Sit to Lying (QC): 6 Lying-Sitting on Side/Bed(QC): 6 Sit to Stand (QC): 6 Chair/Dzl-zc-Vbgos Xfer(QC): 6 Toilet Transfer (QC): 6 Walk 50ft with 2 Turns (QC): 6 PT Plan Problem List Problem List: Activity Tolerance, Functional Strength, Balance, Gait, Transfer Treatment/Plan Treatment Plan: Continue Plan of Care Treatment Duration: Apr 11, 2023 Frequency: 5 times per week Estimated Hrs Per Day: .25 hour per day Patient and/or Family Agrees t: Yes Time Time In: 1030 Time Out: 1053 DATE: Apr 07, 2023 Total Billed Treatment Time: 23 Total Billed Treatment visit, kanal high complexity 23min KATRIN THOMPSON PT Apr 07, 2023 11:12
[2023-04-07 11:42] VITALS: BP 160/83
[2023-04-07 16:00] VITALS: BP 152/70
--- NOTE | 2023-04-07 16:00 | Occupational Therapy Eval ---
OT Evaluation-General/PLF Medical Diagnosis Admission Date Apr 07, 2023 at 10:20 Medical Diagnosis: COVID Onset Date: Apr 04, 2023 Therapy Diagnosis Therapy Diagnosis: weakness Precautions Precautions/Isolations: Contact Isolation, Droplet Isolation, Fall Prevention Weight Bear Status Weight Bearing Restriction: Full Weight Bearing Referral Physician: Jaylene Elizalde MD Referral Reason: Evaluation/Treatment Medical History Pertinent Medical History: HTN Additional Medical History 7-year-old male with past medical history of diabetes, hypertension, IBS who presented with weakness. He states that he had cataract surgery on his right eye on Friday. After completing the surgery, he started to have swelling in his throat. He notes that he then developed fever and chills. He found it difficult to ambulate and walk around. He had significant weakness thus he presented to the ED for further evaluation. He does live alone at home. In the ED he was noted to have a fever to 38.7. His blood pressure was elevated as he has not been able to take his blood pressure medications as of yet this morning. CRP is elevated. Also noted to have mildly elevated liver enzymes. He was noted to be COVID-positive. Due to his weakness, he was ultimately admitted in observation status for further management. Current History Patient reports he looking into CARE HOME/LTC and does not feel he can consistently care for himself on a daily basis Social History Home: Single Level Current Living Status: Alone Entry Into Home: Stairs With Railing ADL-Prior Level of Function SCALE: Activities may be completed with or without assistive devices. 7-Ipzgtbjhfi-zqtcqhn completes the activity by him/herself with no assistance from a helper. 5-Set-up or Clean-up Assistance-helper sets up or cleans up; patient completes activity. [place] assists only prior to or following the activity. 4-Supervision or Touching Assistance-helper provides verbal cues and/or touching/steadying and/or contact guard assistance as patient completes activity. Assistance may be provided throughout the activity or intermittently. 3-Partial/Moderate Assistance-helper does LESS THAN HALF the effort. [place] lifts, holds or supports trunk or limbs, but provides less than half the effort. 2-Substantial/Maximal Assistance-helper does MORE THAN HALF the effort. [place] lifts or holds trunk or limbs and provides more than half the effort. 2-Leqtrpyjx-dgouls does ALL the effort. Patient does none of the effort to complete the activity. Or, the assistance of 2 or more helpers is required for the patient to complete the activity. If activity was not attempted, code reason: 7-Patient Refused. 9-Not Applicable-not attempted and the patient did not perform the activity bef ore the current illness, exacerbation or injury. 10-Not Attempted due to Environmental Limitations-(lack of equipment, weather r estraints, etc.). 88-Not Attempted due to Medical Conditions or Safety Concerns. Self Care: Independent Functional Cognition: Independent Drive Self: Yes OT Current Status Subjective Agreeable to OT Mental Status/Objective Patient Orientation: Person, Place, Time, Situation Current Hearing Aids: No Dentures/Partials: No Hand Dominance: Right Upper Extremity ROM BUE ROM WFL, limited forward flexion d/t eye surgery and no bending below waist Upper Extremity Coordination WFL Upper Extremity Sensation intact Upper Extremity Strength WFL for simple ADLS, lifting limit d/t eye surgery ADL-Treatment Eating (QC): 6 Oral Hygiene (QC): 6 Shower/Bathe Self (QC): 7 Upper Body Dressing (QC): 5 Lower Body Dressing (QC): 5 On/Off Footwear (QC): 5 Toileting Hygiene (QC): 5 Education OT Patient Education: Energy conservation, Progress toward Goal/Update tx plan, Purpose of tx/functional activities, Reviewed precautions, Rehab process, Safety issues, Transfer techniques Teaching Recipient: Patient Teaching Methods: Demonstration, Discussion Response to Teaching: Return Demonstration OT Delivery Rn Goals Delivery Rn Goals 1=Demonstrate adherence to instructed precautions during ADL tasks. 2=Patient will verbalize/demonstrate understanding of assistive devices/modifications for ADL. 3=Patient will improve strength/tolerance for activity to enable patient to perform ADL's. OT Education/Plan Problem List/Assessment Assessment: No Skilled OT Needs ID'd Discharge Recommendations Plan/Recommendations: Discontinue OT Treatment Plan/Plan of Care Patient would benefit from OT for education, treatment and training to promote independence in ADL's, mobility, safety and/or upper extremity function for ADL's. Plan of Care: OTHER (OT EVAL ONLY) Treatment Duration: Apr 07, 2023 Frequency: 1 time per week Estimated Hrs Per Day: .25 hour per day Agreement: Yes Rehab Potential: Good Up in recliner all n4eds met Time Start Time: 14:10 Stop Time: 14:28 DATE: Apr 07, 2023 Total Time Billed (hr/min): 18 Billed Treatment Time EVM 18 min STEPHEN SALINAS OT Apr 07, 2023 16:00
[2023-04-07] MEDS: ENOXAPARIN 40 MG/0.4 ML SYRINGE SC SCH (16:30)
[2023-04-07 19:56] VITALS: BP 148/73
[2023-04-07] MEDS ORDERED: COLESEVELAM HCL 625 MG PO SCH (21:00)
[2023-04-07 23:03] VITALS: BP 158/77
[2023-04-08 05:09] LABS: HEMOGLOBIN 12.6 g/dL (13.3-17.7); MEAN PLATELET VOLUME 10.1 fL (9.0-12.2); WHITE BLOOD COUNT 3.9 10^3/uL (4.3-11.0)
[2023-04-08 05:20] LABS: ALBUMIN 2.7 GM/DL (3.2-4.5); POTASSIUM 3.6 MMOL/L (3.6-5.0)
[2023-04-08 05:21] LABS: CALCIUM 7.9 MG/DL (8.5-10.1)
[2023-04-08 05:23] LABS: TOTAL PROTEIN 6.6 GM/DL (6.4-8.2)
[2023-04-08 05:24] LABS: BILIRUBIN,TOTAL 0.7 MG/DL (0.1-1.0)
[2023-04-08 05:26] LABS: CREATININE SERUM 0.75 MG/DL (0.60-1.30)
[2023-04-08] MEDS: inSUlin ASPART 1 UNIT/0.01 ML (PER UNIT) SC SCH ×4 (05:46→20:30)
[2023-04-08] MEDS: ACETAMINOPHEN 500 MG TABLET PO SCH ×3 (05:47→22:27)
--- NOTE | 2023-04-08 06:46 | Progress Note ---
ALISON VUONG MD, RESIDENT 04/08/23 0646: Subjective Subjective/Events-last exam Patient noted to have 2 episodes of vomiting this AM. Is continuing to have loose stools. Notes that he has been having some dizziness when standing up. He otherwise has no concerns today. Review of Systems General: No Fatigue HEENT: No Head Aches Pulmonary: Dyspnea, Cough Cardiovascular: No: Chest Pain, Palpitations, Edema Gastrointestinal: Diarrhea; No: Nausea, Vomiting, Constipation Genitourinary: No Dysuria Focused Exam Lactate Level 04/05/23 14:10: Lactic Acid Level 1.68 Objective Exam Last Set of Vital Signs Vital Signs Date Time Temp Pulse Resp B/P (MAP) Pulse Ox O2 Delivery O2 Flow Rate FiO2 04/07/23 23:03 37.7 105 20 158/77 (104) 95 Room Air Capillary Refill : Less Than 3 Seconds I&O Intake and Output 04/08/23 00:00 Intake Total 2420 ml Output Total 875 ml Balance 1545 ml Intake Oral 1420 ml IV Total 1000 ml Output Urine Total 875 ml # Voids 3 # Bowel Movements 2 General: Alert, Oriented X3 HEENT: Atraumatic Neck: Supple Lungs: Clear to Auscultation, Other (Continues to have decreased air movement in right air movement) Heart: Regular Rate, No Murmurs Abdomen: Normal Bowel Sounds, Soft, No Tenderness Extremities: No Clubbing, No Edema Neuro: Normal Speech Results/Procedures Lab Laboratory Tests 04/07/23 10:20: Lab Scanned Report Referred Lab Report 04/07/23 11:41: Glucometer 90 04/07/23 16:02: Glucometer 109 04/07/23 19:58: Glucometer 136H 04/08/23 04:58: White Blood Count 3.9L, Red Blood Count 4.58, Hemoglobin 12.6L, Hematocrit 40, Mean Corpuscular Volume 86, Mean Corpuscular Hemoglobin 28, Mean Corpuscular Hemoglobin Concent 32, Red Cell Distribution Width 15.0H, Platelet Count 86L, Mean Platelet Volume 10.1, Percent Immature Platelet Fraction 2.5, Sodium Level 135, Potassium Level 3.6, Chloride Level 107, Carbon Dioxide Level 21, Anion Gap 7, Blood Urea Nitrogen 11, Creatinine 0.75, Estimat Glomerular Filtration Rate 93, BUN/Creatinine Ratio 15, Glucose Level 89, Calcium Level 7.9L, Corrected Calcium 8.9, Total Bilirubin 0.7, Aspartate Amino Transf (AST/SGOT) 48H, Alanine Aminotransferase (ALT/SGPT) 30, Alkaline Phosphatase 213H, Total Protein 6.6, Albumin 2.7L Microbiology 04/05/23 Urine Culture - Final, Complete NO GROWTH 04/05/23 Blood Culture - Preliminary, Resulted Assessment/Plan Assessment/Plan (1) COVID-19 Status: Acute Assessment & Plan: Patient is COVID-positive thus likely contributing to his overall weakness. Chest x-ray negative. CRP is elevated thus further supporting a viral picture. Plan: Tylenol as needed for fevers Supportive care (2) Weakness Status: Chronic Assessment & Plan: Secondary to above. May also have weakness at baseline given that patient was expressing he has had a couple falls this year already. Plan: PT/OT consulted, appreciate recommendations Anticipate discharge to shelter/assisted living facility for safety (3) Elevated LFTs Status: Acute Assessment & Plan: Elevated AST and alk phos may be secondary to COVID infection. Continues to have worsening of AST this morning however alk phos appears to be improving. Plan: -Obtaining liver u/s (4) Thrombocytopenia Status: Acute Assessment & Plan: Patient noted to have thrombocytopenia with platelets below 100. On review of patient's clinic labs, it appears that platelet count on 11/28/2022 and 06/21/2022 were normal. May be secondary to liver dysfunction. Plan: Liver ultrasound as per above Monitor daily CBC (5) Hypertension Status: Chronic Assessment & Plan: Blood pressure continues to be mildly elevated. Plan: Continue home amlodipine 10 mg daily Restarted lisinopril 40 mg daily. If blood pressure continues to be elevated, will restart patient's home atenolol. (6) Type 2 diabetes mellitus Status: Chronic Assessment & Plan: On Jardiance at home. Sugars well controlled at this time. Plan: Sliding scale insulin - Will restart home jardiance Qualifiers: Qualified Codes: E11.9 - Type 2 diabetes mellitus without complications (7) Age-related nuclear cataract, right eye Status: Chronic Assessment & Plan: Patient had cataract surgeries recently to both eyes. Okay to use own med which is eyedrops. (8) Age-related nuclear cataract, left eye Status: Chronic Assessment & Plan: See above JULIO CHIU MD 04/08/23 1142: Supervisory-Addendum Brief Supervisory Addendum I personally performed the myers portions of the visit, discussed case with resident and concur with resident documentation of history, physical exam, assessment and treatment plan unless otherwise noted. ALISON VUONG MD, RESIDENT Apr 08, 2023 06:46 JULIO CHIU MD Apr 08, 2023 11:42
[2023-04-08 07:49] VITALS: BP 134/84
[2023-04-08] MEDS: SENNOSIDES 8.6 MG TABLET PO SCH ×2 (09:00→19:05)
[2023-04-08] MEDS: DOCUSATE SODIUM 100 MG CAPSULE PO SCH ×2 (09:00→19:05)
[2023-04-08] MEDS: amLODIPine 5 MG TABLET PO SCH (09:15)
[2023-04-08] MEDS: PHENOL THROAT SPRAY 177 ML LIQUID MC SCH ×2 (09:15→14:55)
[2023-04-08] MEDS ORDERED: LOPERAMIDE 2 MG CAPSULE PO PRN (11:30)
[2023-04-08] MEDS ORDERED: RT-ALBUTEROL HFA 8.5 GM INHALER IH PRN (11:30)
--- NOTE | 2023-04-08 13:49 | Physical Therapy Daily Note ---
PT Daily Note-Current Subjective Pt found lying in bed upon entry. Agreed to PT. Reports that he has been to the bathroom several times today. States that he is feeling very lightheaded. He also states that he has vomited a few times today. Pain Section J - Health Conditions 1. Rarely or not at all 2. Occasionally 3. Frequently 4. Almost constantly 8. Unable to answer Pain Effect on Sleep: 1 Pain Interference with Therapy: 1 Pain Interference w/Day-to-Day: 1 Mental Status Patient Orientation: Person (w) Transfers SCALE: Activities may be completed with or without assistive devices. 6-Jenrtjmzbe-hmckxhx completes the activity by him/herself with no assistance from a helper. 5-Set-up or Clean-up Assistance-helper sets up or cleans up; patient completes activity. [place] assists only prior to or following the activity. 4-Supervision or Touching Assistance-helper provides verbal cues and/or touching/steadying and/or contact guard assistance as patient completes activity. Assistance may be provided throughout the activity or intermittently. 3-Partial/Moderate Assistance-helper does LESS THAN HALF the effort. [place] lifts, holds or supports trunk or limbs, but provides less than half the effort. 2-Substantial/Maximal Assistance-helper does MORE THAN HALF the effort. [place] lifts or holds trunk or limbs and provides more than half the effort. 9-Qdcrqvooc-knwbiz does ALL the effort. Patient does none of the effort to complete the activity. Or, the assistance of 2 or more helpers is required for the patient to complete the activity. If activity was not attempted, code reason: 7-Patient Refused. 9-Not Applicable-not attempted and the patient did not perform the activity before the current illness, exacerbation or injury. 10-Not Attempted due to Environmental Limitations-(lack of equipment, weather restraints, etc.). 88-Not Attempted due to Medical Conditions or Safety Concerns. Lying to Sitting/Side of Bed(Q: 6 Sit to Stand (QC): 6 Gait Training Does the Patient Walk?: Yes Distance: 30 Walk 10 feet (QC): 3 Gait Persons Needed: 1 Gait Assistive Device: Handheld Assist Assessment Current Status: Fair Progress Pt performs lying to sitting and sit to stand transfers independently. He ambulated 30 feet in room /c handheld assistance. Pt frequently grabs objects in room for balance. He appears very dizzy throughout visit and occasionally loses balance requiring MIN assist for steadying during ambulation. Reports increased fatigue post-treatment. Pt left on edge of bed /c call light in place and all needs met post-treatment. Continue to progress pt per POC. PT Short Term Goals Short Term Goals Time Frame: Apr 09, 2023 Roll Left & Right: 6 Sit to lyin Lying to sitting on side of be: 6 Sit to stand: 6 Chair/ggu-ku-zrjwx transfer: 6 Walk 50 feet with two turns: 6 PT Biomass Plant Manager Goals Detention Goals PT Detention Goals Time Frame: Apr 11, 2023 Roll Left & Right (QC): 6 Sit to Lying (QC): 6 Lying-Sitting on Side/Bed(QC): 6 Sit to Stand (QC): 6 Chair/Tjz-it-Lnbdi Xfer(QC): 6 Toilet Transfer (QC): 6 Walk 50ft with 2 Turns (QC): 6 PT Plan Treatment/Plan Treatment Plan: Continue Plan of Care Treatment Duration: Apr 11, 2023 Frequency: 5 times per week Estimated Hrs Per Day: .25 hour per day Patient and/or Family Agrees t: Yes Time Time In: 1301 Time Out: 1314 DATE: Apr 08, 2023 Total Billed Treatment Time: 13 Total Billed Treatment 1 visit GT x 1 MÓNICA HATFIELD EMERGENCY SERVICES DIRECTOR Apr 08, 2023 13:49
[2023-04-08 15:46] VITALS: BP 171/82
[2023-04-08] MEDS: ENOXAPARIN 40 MG/0.4 ML SYRINGE SC SCH (17:09)
[2023-04-08] MEDS ORDERED: PHENOL THROAT SPRAY 177 ML LIQUID MC PRN (17:15)
[2023-04-08 23:28] VITALS: BP 149/73
[2023-04-09] MEDS: inSUlin ASPART 1 UNIT/0.01 ML (PER UNIT) SC SCH ×4 (05:15→20:54)
[2023-04-09] MEDS: ACETAMINOPHEN 500 MG TABLET PO SCH ×3 (05:24→22:41)
[2023-04-09 06:02] LABS: HEMOGLOBIN 12.6 g/dL (13.3-17.7); MEAN PLATELET VOLUME 9.8 fL (9.0-12.2); WHITE BLOOD COUNT 3.9 10^3/uL (4.3-11.0)
[2023-04-09 06:10] LABS: ALBUMIN 2.6 GM/DL (3.2-4.5); POTASSIUM 3.4 MMOL/L (3.6-5.0)
[2023-04-09 06:12] LABS: CALCIUM 8.2 MG/DL (8.5-10.1)
[2023-04-09 06:13] LABS: TOTAL PROTEIN 6.4 GM/DL (6.4-8.2)
[2023-04-09 06:15] LABS: BILIRUBIN,TOTAL 0.7 MG/DL (0.1-1.0)
[2023-04-09 06:16] LABS: CREATININE SERUM 0.74 MG/DL (0.60-1.30)
[2023-04-09] MEDS ORDERED: POTASSIUM CHLORIDE 20 MEQ TABLET PO NR (07:00)
[2023-04-09 07:46] VITALS: BP 137/82
[2023-04-09] MEDS: amLODIPine 5 MG TABLET PO SCH (10:07)
[2023-04-09] MEDS: DOCUSATE SODIUM 100 MG CAPSULE PO SCH ×2 (10:29→20:54)
[2023-04-09] MEDS: SENNOSIDES 8.6 MG TABLET PO SCH ×2 (10:29→20:54)
--- NOTE | 2023-04-09 12:51 | Progress Note ---
ALISON VUONG MD, RESIDENT 04/09/23 1251: Subjective Subjective/Events-last exam Patient is noting that he is feeling better compared to yesterday. He is continue to have some episodes of nausea however has not had any further episodes of vomiting. Does note that his diarrhea has slowed down since starting the Imodium. He otherwise has no concerns today. Review of Systems General: No Chills, No Fatigue HEENT: No Head Aches Pulmonary: No Dyspnea, No Cough Cardiovascular: No: Chest Pain, Palpitations, Edema Gastrointestinal: Nausea, Diarrhea; No: Vomiting, Constipation Genitourinary: No Dysuria Neurological: Weakness Objective Exam Last Set of Vital Signs Vital Signs Date Time Temp Pulse Resp B/P (MAP) Pulse Ox O2 Delivery O2 Flow Rate FiO2 04/09/23 08:00 Room Air 04/09/23 07:46 36.6 104 16 137/82 (100) 98 Capillary Refill : Less Than 3 Seconds I&O Intake and Output 04/09/23 00:00 Intake Total 1620 ml Output Total 700 ml Balance 920 ml Intake Oral 1620 ml Output Urine Total 700 ml # Voids 5 # Bowel Movements 4 General: Alert, Oriented X3 HEENT: Atraumatic, EOMI Neck: Supple Lungs: Clear to Auscultation, Normal Air Movement Heart: Regular Rate, No Murmurs Abdomen: Normal Bowel Sounds, No Tenderness Extremities: Other (Continues to have 2+ peripheral edema) Neuro: Normal Speech Psych/Mental Status: Mental Status NL Results/Procedures Lab Laboratory Tests 04/08/23 15:48: Glucometer 119H 04/08/23 20:08: Glucometer 109 04/09/23 05:15: Glucometer 78 04/09/23 05:49: White Blood Count 3.9L, Red Blood Count 4.56, Hemoglobin 12.6L, Hematocrit 39L, Mean Corpuscular Volume 86, Mean Corpuscular Hemoglobin 28, Mean Corpuscular Hemoglobin Concent 32, Red Cell Distribution Width 15.1H, Platelet Count 88L, Mean Platelet Volume 9.8, Percent Immature Platelet Fraction 2.1, Sodium Level 134L, Potassium Level 3.4L, Chloride Level 106, Carbon Dioxide Level 20L, Anion Gap 8, Blood Urea Nitrogen 12, Creatinine 0.74, Estimat Glomerular Filtration Rate 93, BUN/Creatinine Ratio 16, Glucose Level 86, Calcium Level 8.2L, Corrected Calcium 9.3, Total Bilirubin 0.7, Aspartate Amino Transf (AST/SGOT) 50H, Alanine Aminotransferase (ALT/SGPT) 33, Alkaline Phosphatase 212H, Total Protein 6.4, Albumin 2.6L 04/09/23 11:52: Glucometer 112H Microbiology 04/05/23 Urine Culture - Final, Complete NO GROWTH 04/05/23 Blood Culture - Preliminary, Resulted Assessment/Plan Assessment/Plan (1) COVID-19 Status: Acute Assessment & Plan: Patient is COVID-positive thus likely contributing to his overall weakness. Chest x-ray negative. CRP is elevated thus further supporting a viral picture. Plan: Tylenol as needed for fevers Supportive care Patient will be removed from isolation on 04/14/2023 after which we anticipate discharge to SNF (2) Weakness Status: Chronic Assessment & Plan: Secondary to above. May also have weakness at baseline given that patient was expressing he has had a couple falls this year already. Plan: PT/OT consulted, appreciate recommendations Anticipate discharge to group home/assisted living facility for safety (3) Elevated LFTs Status: Acute Assessment & Plan: Elevated AST and alk phos may be secondary to COVID infection. Continues to have worsening of AST this morning however alk phos appears to be improving. Plan: -Obtain liver ultrasound today, we will follow-up (4) Thrombocytopenia Status: Acute Assessment & Plan: Patient noted to have thrombocytopenia with platelets below 100. On review of patient's clinic labs, it appears that platelet count on 11/28/2022 and 06/21/2022 were normal. May be secondary to liver dysfunction. Mildly increased today. Plan: Liver ultrasound as per above Monitor daily CBC (5) Hypertension Status: Chronic Assessment & Plan: Blood pressure continues to be mildly elevated. Plan: Continue home amlodipine 10 mg daily Restarted lisinopril 40 mg daily. If blood pressure continues to be elevated, will restart patient's home atenolol. (6) Type 2 diabetes mellitus Status: Chronic Assessment & Plan: On Jardiance at home. Sugars well controlled at this time. Plan: Sliding scale insulin - Will restart home jardiance Qualifiers: Qualified Codes: E11.9 - Type 2 diabetes mellitus without complications (7) Age-related nuclear cataract, right eye Status: Chronic Assessment & Plan: Patient had cataract surgeries recently to both eyes. Okay to use own med which is eyedrops. (8) Age-related nuclear cataract, left eye Status: Chronic Assessment & Plan: See above JULIO CHIU MD 04/09/23 1428: Supervisory-Addendum Brief Supervisory Addendum I personally performed the myers portions of the visit, discussed case with resident and concur with resident documentation of history, physical exam, assessment and treatment plan unless otherwise noted. ALISON VUONG MD, RESIDENT Apr 09, 2023 12:51 JULIO CHIU MD Apr 09, 2023 14:28
--- NOTE | 2023-04-09 15:48 | Diagnostic Imaging Report ---
PROCEDURE: US Hepatic (Liver). TECHNIQUE: Multiple real-time grayscale images were obtained over the right upper quadrant in various projections. INDICATION: Elevated alkaline phosphatase level. COMPARISON: None available. FINDINGS: The liver has a nodular stroma morphology indicative of cirrhosis. A moderate amount of ascites is present within the liver. There is also ascites present. The remainder of the abdomen. Main portal vein is patent, although the velocities within the main portal vein are diminished suggestive of portal hypertension. Gallbladder surgically absent. The common bile duct measures up to 0.3 cm in diameter. No intrahepatic biliary dilation. Pancreas is obscured by overlying bowel gas. The right kidney is normal in size. No hydronephrosis, shadowing calculi, or suspicious mass lesion. IMPRESSION: 1. Cirrhosis without focal hepatic lesion. 2. Poor hypertension is present. 3. There is moderate ascites. Dictated by: Dictated on workstation # [id number]
--- NOTE | 2023-04-09 15:49 | Physical Therapy Daily Note ---
PT Daily Note-Current Subjective Patient sitting on edge of bed upon PT arrival, agreeable to treatment. Pain Section J - Health Conditions 1. Rarely or not at all 2. Occasionally 3. Frequently 4. Almost constantly 8. Unable to answer Pain Effect on Sleep: 1 Pain Interference with Therapy: 1 Pain Interference w/Day-to-Day: 1 Transfers SCALE: Activities may be completed with or without assistive devices. 6-Wacxplqoyu-bmzciak completes the activity by him/herself with no assistance from a helper. 5-Set-up or Clean-up Assistance-helper sets up or cleans up; patient completes activity. [place] assists only prior to or following the activity. 4-Supervision or Touching Assistance-helper provides verbal cues and/or touching/steadying and/or contact guard assistance as patient completes activity. Assistance may be provided throughout the activity or intermittently. 3-Partial/Moderate Assistance-helper does LESS THAN HALF the effort. [place] lifts, holds or supports trunk or limbs, but provides less than half the effort. 2-Substantial/Maximal Assistance-helper does MORE THAN HALF the effort. [place] lifts or holds trunk or limbs and provides more than half the effort. 6-Rtjiewmsx-fyioev does ALL the effort. Patient does none of the effort to complete the activity. Or, the assistance of 2 or more helpers is required for the patient to complete the activity. If activity was not attempted, code reason: 7-Patient Refused. 9-Not Applicable-not attempted and the patient did not perform the activity before the current illness, exacerbation or injury. 10-Not Attempted due to Environmental Limitations-(lack of equipment, weather restraints, etc.). 88-Not Attempted due to Medical Conditions or Safety Concerns. Sit to Stand (QC): 4 Chair/Nei-pn-Lkwis Xfer(QC): 4 Gait Training Does the Patient Walk?: Yes Distance: 24' Walk 10 feet (QC): 3 Gait Assistive Device: Cane Single Point Assessment Current Status: Fair Progress Patient demonstrates significantly edematous LEs. Patient requires min a for sit to stand due to loss of balance. Patient ambulates 24' in room with cane, with CGA/Min A for loss of balance and verbal cues for progression, safety and gait pattern. Patient sitting EOB post treatment with all needs met, nursing notified, call light in reach. PT Short Term Goals Short Term Goals Time Frame: Apr 09, 2023 Roll Left & Right: 6 Sit to lyin Lying to sitting on side of be: 6 Sit to stand: 6 Chair/aex-rq-lghrc transfer: 6 Walk 50 feet with two turns: 6 PT Chcf Goals Chcf Goals PT Wood Heel Fitter Machine Goals Time Frame: Apr 11, 2023 Roll Left & Right (QC): 6 Sit to Lying (QC): 6 Lying-Sitting on Side/Bed(QC): 6 Sit to Stand (QC): 6 Chair/Chr-pr-Ompna Xfer(QC): 6 Toilet Transfer (QC): 6 Walk 50ft with 2 Turns (QC): 6 PT Plan Problem List Problem List: Activity Tolerance, Functional Strength, Safety, Balance, Gait, Transfer, Bed Mobility, ROM Treatment/Plan Treatment Plan: Continue Plan of Care Treatment Plan: Bed Mobility, Education, Functional Activity Scotty, Functional Strength Treatment Duration: Apr 11, 2023 Frequency: 5 times per week Estimated Hrs Per Day: .25 hour per day Patient and/or Family Agrees t: Yes Safety Risks/Education Patient Education: Gait Training, Transfer Techniques Teaching Recipient: Patient Teaching Methods: Demonstration, Discussion Response to Teaching: Verbalize Understanding, Return Demonstration Time Time In: 1533 Time Out: 1543 DATE: Apr 09, 2023 Total Billed Treatment Time: 10 Total Billed Treatment Visit, REYES ROQUE PT Apr 09, 2023 15:49
[2023-04-09 16:50] VITALS: BP 129/63
[2023-04-09] MEDS: ENOXAPARIN 40 MG/0.4 ML SYRINGE SC SCH (17:07)
[2023-04-09 17:10] VITALS: BP 129/63
[2023-04-09 23:44] VITALS: BP 147/75
[2023-04-10] MEDS: ACETAMINOPHEN 500 MG TABLET PO SCH (05:06)
[2023-04-10] MEDS: inSUlin ASPART 1 UNIT/0.01 ML (PER UNIT) SC SCH ×2 (05:20→11:34)
[2023-04-10 05:53] LABS: WHITE BLOOD COUNT 6.3 10^3/uL (4.3-11.0)
[2023-04-10 05:54] LABS: ALBUMIN 3.1 GM/DL (3.2-4.5)
[2023-04-10 05:55] LABS: POTASSIUM 3.9 MMOL/L (3.6-5.0)
[2023-04-10 05:55] LABS: HEMOGLOBIN 13.6 g/dL (13.3-17.7); MEAN PLATELET VOLUME 10.1 fL (9.0-12.2)
[2023-04-10 05:56] LABS: CALCIUM 8.5 MG/DL (8.5-10.1)
[2023-04-10 05:57] LABS: TOTAL PROTEIN 7.4 GM/DL (6.4-8.2)
[2023-04-10 05:59] LABS: BILIRUBIN,TOTAL 0.9 MG/DL (0.1-1.0)
[2023-04-10 06:01] LABS: CREATININE SERUM 0.92 MG/DL (0.60-1.30)
[2023-04-10 07:55] VITALS: BP 145/72
[2023-04-10] MEDS: amLODIPine 5 MG TABLET PO SCH (09:49)
[2023-04-10] MEDS: DOCUSATE SODIUM 100 MG CAPSULE PO SCH (09:50)
[2023-04-10] MEDS: SENNOSIDES 8.6 MG TABLET PO SCH (09:50)
--- NOTE | 2023-04-10 11:05 | Progress Note ---
ALISON VUONG MD, RESIDENT 04/10/23 1105: Subjective Subjective/Events-last exam Patient is continuing to do well this morning. Has no concerns. We discussed a little bit about the cirrhosis that showed up on his liver ultrasound. Patient states that he had a liver biopsy completed 7 to 8 years ago which did show that he would progress to cirrhosis. He is always been told that it is secondary to fatty liver. He states that he last used alcohol back in 2002 but has not used since. He does not use any Tylenol at home. Patient does note that his edema improved last night around 1 in the morning when he got up to use the bathroom however recurred this morning. It does appear that his edema improves with elevation of his legs. He otherwise has no concerns today. Review of Systems General: No Fatigue HEENT: No Head Aches Pulmonary: No Dyspnea, No Cough Cardiovascular: Edema; No: Chest Pain, Palpitations Gastrointestinal: No: Nausea, Vomiting, Diarrhea, Constipation Genitourinary: No Dysuria Objective Exam Last Set of Vital Signs Vital Signs Date Time Temp Pulse Resp B/P (MAP) Pulse Ox O2 Delivery O2 Flow Rate FiO2 04/10/23 08:00 Room Air 04/10/23 07:55 36.5 77 16 145/72 (96) 100 Capillary Refill : Less Than 3 Seconds I&O Intake and Output 04/10/23 00:00 Intake Total 1520 ml Output Total 1175 ml Balance 345 ml Intake Oral 1520 ml Output Urine Total 1175 ml # Voids 2 # Bowel Movements 3 General: Alert, Oriented X3 HEENT: Atraumatic, EOMI Neck: Supple Lungs: Clear to Auscultation, Normal Air Movement Heart: Regular Rate, No Murmurs Abdomen: Normal Bowel Sounds, Soft, No Tenderness Extremities: Other (2+ peripheral edema) Skin: No Rashes Neuro: Normal Speech Psych/Mental Status: Mental Status NL Results/Procedures Lab Laboratory Tests 04/09/23 11:52: Glucometer 112H 04/09/23 16:57: Glucometer 83 04/10/23 05:19: Glucometer 104 04/10/23 05:20: Sodium Level 134L, Potassium Level 3.9, Chloride Level 106, Carbon Dioxide Level 18L, Anion Gap 10, Blood Urea Nitrogen 14, Creatinine 0.92, Estimat Glomerular Filtration Rate 86, BUN/Creatinine Ratio 15, Glucose Level 105, Calcium Level 8.5, Corrected Calcium 9.2, Total Bilirubin 0.9, Aspartate Amino Transf (AST/SGOT) 81H, Alanine Aminotransferase (ALT/SGPT) 50, Alkaline Phosphatase 312H, Total Protein 7.4, Albumin 3.1L 04/10/23 05:24: White Blood Count 6.3, Red Blood Count 4.98, Hemoglobin 13.6, Hematocrit 43, Mean Corpuscular Volume 87, Mean Corpuscular Hemoglobin 27, Mean Corpuscular Hemoglobin Concent 32, Red Cell Distribution Width 15.1H, Platelet Count 127L, Mean Platelet Volume 10.1, Percent Immature Platelet Fraction 2.0 04/10/23 10:54: Glucometer 110 Microbiology 04/05/23 Urine Culture - Final, Complete NO GROWTH 04/05/23 Blood Culture - Preliminary, Resulted Assessment/Plan Assessment/Plan (1) COVID-19 Status: Acute Assessment & Plan: Patient is COVID-positive thus likely contributing to his overall weakness. Chest x-ray negative. CRP is elevated thus further supporting a viral picture. Plan: Tylenol as needed for fevers Supportive care Patient will be removed from isolation on 04/14/2023 after which we anticipate discharge to SNF (2) Weakness Status: Chronic Assessment & Plan: Secondary to above. May also have weakness at baseline gi timothy that patient was expressing he has had a couple falls this year already. Plan: We will try to transfer patient to swing bed to continue PT/OT while he is hospitalized (3) Cirrhosis Status: Chronic Assessment & Plan: Patient noted to have continued elevations of AST and alkaline phosphatase. Liver ultrasound completed yesterday was notable for cirrhosis and moderate ascites as well as portal hypertension. As noted in subjective, patient has had a liver biopsy about 7 to 8 years ago and cirrhosis was thought to be secondary to fatty infiltrate. Plan: -No acute needs while inpatient however would benefit from a GI referral in the outpatient Qualifiers: Qualified Codes: K74.60 - Unspecified cirrhosis of liver; R18.8 - Other ascites (4) Thrombocytopenia Status: Chronic Assessment & Plan: Patient noted to have thrombocytopenia with platelets below 100. On review of patient's clinic labs, it appears that platelet count on 11/28/2022 and 06/21/2022 were normal. Platelet count continues to improve, likely secondary to liver dysfunction that is chronic. Plan: Monitor daily CBC (5) Hypertension Status: Chronic Assessment & Plan: Blood pressure continues to be mildly elevated. Plan: Continue home amlodipine 10 mg daily Restarted lisinopril 40 mg daily. If blood pressure continues to be elevated, will restart patient's home atenolol. (6) Type 2 diabetes mellitus Status: Chronic Assessment & Plan: On Jardiance at home. Sugars well controlled at this time. Plan: Sliding scale insulin -Holding off on starting home Jardiance as patient has not required any insulin and sugars are still well controlled. Qualifiers: Qualified Codes: E11.9 - Type 2 diabetes mellitus without complications (7) Age-related nuclear cataract, right eye Status: Chronic Assessment & Plan: Patient had cataract surgeries recently to both eyes. Okay to use own med which is eyedrops. (8) Age-related nuclear cataract, left eye Status: Chronic Assessment & Plan: See above JULIO CHIU MD 04/10/23 1312: Supervisory-Addendum Brief Supervisory Addendum I personally performed the myers portions of the visit, discussed case with resident and concur with resident documentation of history, physical exam, assessment and treatment plan unless otherwise noted. ALISON VUONG MD, RESIDENT Apr 10, 2023 11:05 JULIO CHIU MD Apr 10, 2023 13:12
--- NOTE | 2023-04-10 13:44 | Discharge Summary ---
ALISON VUONG MD, RESIDENT 04/10/23 1344: Discharge Summary Hospital Course Problems/Diagnosis: (1) COVID-19 Status: Acute Assessment & Plan: Patient is COVID-positive thus likely contributing to his overall weakness. Chest x-ray negative. CRP is elevated thus further supporting a viral picture. Plan: Tylenol as needed for fevers Supportive care - Discharged to swing bed status today Patient will be removed from isolation on 04/14/2023 after which we anticipate discharge to SNF (2) Weakness Status: Chronic Assessment & Plan: Secondary to above. May also have weakness at baseline giv en that patient was expressing he has had a couple falls this year already. Plan: We will try to transfer patient to swing bed to continue PT/OT while he is hospitalized (3) Cirrhosis Status: Chronic Assessment & Plan: Patient noted to have continued elevations of AST and alkaline phosphatase. Liver ultrasound completed yesterday was notable for cirrhosis and moderate ascites as well as portal hypertension. As noted in subjective, patient has had a liver biopsy about 7 to 8 years ago and cirrhosis was thought to be secondary to fatty infiltrate. Plan: -No acute needs while inpatient however would benefit from a GI referral in the outpatient Qualifiers: Qualified Codes: K74.60 - Unspecified cirrhosis of liver; R18.8 - Other ascites (4) Thrombocytopenia Status: Chronic Assessment & Plan: Patient noted to have thrombocytopenia with platelets below 100. On review of patient's clinic labs, it appears that platelet count on 11/28/2022 and 06/21/2022 were normal. Platelet count continues to improve, likely secondary to liver dysfunction that is chronic. Plan: Monitor daily CBC (5) Hypertension Status: Chronic Assessment & Plan: Blood pressure continues to be mildly elevated. Plan: Continue home amlodipine 10 mg daily Restarted lisinopril 40 mg daily. If blood pressure continues to be elevated, will restart patient's home atenolol. (6) Type 2 diabetes mellitus Status: Chronic Assessment & Plan: On Jardiance at home. Sugars well controlled at this time. Plan: Sliding scale insulin -Holding off on starting home Jardiance as patient has not required any insulin and sugars are still well controlled. Qualifiers: Qualified Codes: E11.9 - Type 2 diabetes mellitus without complications (7) Age-related nuclear cataract, right eye Status: Chronic Assessment & Plan: Patient had cataract surgeries recently to both eyes. Okjose martin to use own med which is eyedrops. (8) Age-related nuclear cataract, left eye Status: Chronic Assessment & Plan: See above Hospital Course Date of Admission: Apr 07, 2023 at 10:20 Admission Diagnosis : Family Physician/Provider: Zainab Zhang Aprn Date of Discharge: 04/10/23 Discharge Diagnosis: COVID, weakness Hospital Course: Patient is a 77-year-old male with past medical history of diabetes, hypertension, IBS who presented with weakness. Due to his weakness and the fact that patient lives alone at home, he presented to the ED for further evaluation. In the ED he was noted to have a fever to 38.7. He was noted to be COVID- positive. Due to his weakness, he was ultimately admitted for PT/OT evaluation and treatment of weakness. We continued supportive treatment for COVID and patient continued to improve. He did however continue to have some weakness and dizziness. Patient was evaluated by PT who recommend SNF placement. Patient has a bed available at [facility] but cannot be discharged yet until he can be removed from isolation for COVID. Thus patient will be discharged to swing bed status to work on getting stronger until he is able to be discharged to SNF. Labs and Pending Lab Test: Laboratory Tests 04/09/23 16:57: Glucometer 83 04/10/23 05:19: Glucometer 104 04/10/23 05:20: Sodium Level 134L, Potassium Level 3.9, Chloride Level 106, Carbon Dioxide Level 18L, Anion Gap 10, Blood Urea Nitrogen 14, Creatinine 0.92, Estimat Glomerular Filtration Rate 86, BUN/Creatinine Ratio 15, Glucose Level 105, Calcium Level 8.5, Corrected Calcium 9.2, Total Bilirubin 0.9, Aspartate Amino Transf (AST/SGOT) 81H, Alanine Aminotransferase (ALT/SGPT) 50, Alkaline Phosphatase 312H, Total Protein 7.4, Albumin 3.1L 04/10/23 05:24: White Blood Count 6.3, Red Blood Count 4.98, Hemoglobin 13.6, Hematocrit 43, Mean Corpuscular Volume 87, Mean Corpuscular Hemoglobin 27, Mean Corpuscular Hemoglobin Concent 32, Red Cell Distribution Width 15.1H, Platelet Count 127L, Mean Platelet Volume 10.1, Percent Immature Platelet Fraction 2.0 04/10/23 10:54: Glucometer 110 Microbiology 04/05/23 Urine Culture - Final, Complete NO GROWTH 04/05/23 Blood Culture - Preliminary, Resulted Home Meds Active Reported Claritin (Loratadine) 10 Mg Tablet 10 Mg PO DAILY Amlodipine Besylate 10 Mg Tablet 10 Mg PO 1700 Atenolol 100 Mg Tablet 100 Mg PO 1700 Lisinopril 40 Mg Tablet 40 Mg PO DAILY Atorvastatin Calcium 20 Mg Tablet 20 Mg PO 1700 Metamucil Fiber Singles Packet (Psyllium Husk/Aspartame) 3.4 Gram Powd.pack 3.4 Gm PO DAILY PRN Colesevelam HCl 625 Mg Tablet 625 Mg PO BID Jardiance (Empagliflozin) 10 Mg Tablet 10 Mg PO DAILY Assessment/Pt DC Instructions Please see electronic discharge instructions given to patient. Discharge Diet: No Restrictions Activity as Tolerated: Yes Discharge Physical Examination Allergies: Uncoded Allergies: SULFA (Allergy, Unknown, HIVES, 04/05/23) General Appearance: No Apparent Distress HEENT: Normal ENT Inspection Respiratory: Chest Non Tender, Lungs Clear, Normal Breath Sounds, No Accessory Muscle Use, No Respiratory Distress Cardiovascular: Regular Rate, Rhythm, No Murmur, Other (2+ LE edema) Gastrointestinal: Normal Bowel Sounds, Non Tender, Soft Skin: Normal Color, Warm/Dry Neurologic/Psychiatric: Alert, Oriented x3 JULIO CHIU MD 04/10/23 1611: Discharge Summary Discharge Physical Examination Allergies: Uncoded Allergies: SULFA (Allergy, Unknown, HIVES, 04/05/23) Supervisory-Addendum Brief Supervisory Addendum I personally performed the myers portions of the visit, discussed case with resident and concur with resident documentation of history, physical exam, assessment and treatment plan unless otherwise noted. ALISON VUONG MD, RESIDENT Apr 10, 2023 13:44 JULIO CHIU MD Apr 10, 2023 16:11
[2023-04-15] MEDS ORDERED: ENOX40DI8 SC (12:07)
[2023-04-15] MEDS ORDERED: PSYL3.4P5 PO (12:07)
[2023-04-15] MEDS ORDERED: LORA10TA76 PO (12:07)
[2023-04-15] MEDS ORDERED: LISI40TA9 PO (12:07)
[2023-04-15] MEDS ORDERED: ACET-93 PO (12:07)
[2023-04-15] MEDS ORDERED: ATEN100T PO (12:07)
[2023-04-15] MEDS ORDERED: AMLO-251 PO (12:07)
[2023-04-15] MEDS ORDERED: COLE625T14 PO (12:07)
[2023-04-15] MEDS ORDERED: ATOR20TA66 PO (12:07)
[2023-04-15] MEDS ORDERED: EMPA10TA PO (12:07)
== END 2023-04-10 13:45 | disposition swing bed (61) | DRG 179 ==
LOC: EDUNIT# 13:51 → ER 13:51 → 4TH 16:13 → OBSVTOIN 04-07 10:20
PROVIDERS: ADMIT Internal Medicine; ATTEND Family Medicine
PROC: 8E0ZXY6 Isolation (ICD-10-PCS; principal; 2023-04-05)
DX: U07.1 COVID-19 (principal); E86.0 Dehydration; R53.1 Weakness; E11.9 Type 2 diabetes mellitus without complications; D69.6 Thrombocytopenia, unspecified; K74.60 Unspecified cirrhosis of liver; I10 Essential (primary) hypertension; K58.9 Irritable bowel syndrome, unspecified; Z91.81 History of falling; Z48.810 Encounter for surgical aftercare following surgery on the sense organs; Z79.84 Long term (current) use of oral hypoglycemic drugs; Z79.899 Other long term (current) drug therapy; Z88.2 Allergy status to sulfonamides
CPT/HCPCS: 36415; 71045; 76705; 80053; 81000; 82947; 83605; 85025; 85027; 85610; 85730; 86141; 87040; 87088; 87636; G0378

== ENCOUNTER 2023-04-10 12:14 | Inpatient (IN) | payer MEDICARE ==
[~2023-04-10] VITALS: Ht 175 cm; Wt 99.7 kg
[~2023-04-10 12:14] MED LIST changes: +AMLO-251 PO; +ATEN100T PO; +LISI40TA9 PO; +LORA10TA76 PO
[2023-04-10] MEDS ORDERED: LACTULOSE SYRUP 10GM/15ML 30ML UDC PO PRN (14:00)
[2023-04-10] MEDS ORDERED: ONDANSETRON 4 MG ORAL DISSOLVE TABLET PO PRN (14:00)
[2023-04-10] MEDS ORDERED: oxyCODONE IMMEDIATE RELEASE 5 MG TABLET PO PRN (14:00)
[2023-04-10] MEDS ORDERED: [UNRECOGNIZED DRUG - OTHER] MC PRN (14:00)
[2023-04-10] MEDS ORDERED: PHENOL THROAT SPRAY 177 ML LIQUID MC PRN (14:00)
[2023-04-10] MEDS ORDERED: MELATONIN 3 MG TABLET PO PRN (14:00)
[2023-04-10] MEDS ORDERED: NALOXONE 0.4 MG/ML 1 ML VIAL IV PRN (14:00)
[2023-04-10] MEDS ORDERED: ONDANSETRON INJECTION 4 MG/2 ML (SDV) IV PRN (14:00)
[2023-04-10] MEDS ORDERED: ENOXAPARIN 40 MG/0.4 ML SYRINGE SC SCH (14:00)
[2023-04-10] MEDS ORDERED: LOPERAMIDE 2 MG CAPSULE PO PRN (14:00)
[2023-04-10] MEDS ORDERED: diphenhydrAMINE INJ 50 MG/ML VIAL IVP PRN (14:00)
[2023-04-10] MEDS ORDERED: PATIENT MAY USE OWN MED,SINGLE MED PO SCH (14:00)
[2023-04-10] MEDS ORDERED: ANTACID SUSPENSION 30 ML UDC PO PRN (14:00)
[2023-04-10] MEDS ORDERED: diphenhydrAMINE 25 MG TABLET PO PRN (14:00)
[2023-04-10] MEDS ORDERED: ACETAMINOPHEN 325 MG TABLET PO PRN (14:00)
[2023-04-10] MEDS ORDERED: MILK OF MAGNESIA 400 MG/5 ML 30 ML UDC PO PRN (14:00)
[2023-04-10] MEDS ORDERED: BISACODYL 10 MG SUPPOSITORY PR PRN (14:00)
--- OUTSIDE RECORDS SUMMARY | 2023-04-10 14:02 | XMS REPORT ---
Author Author [facility] Address Unknown Phone Unavailable Care Team Providers Care Laborer Sawmill Name Role Phone SUJATHA STRAUSS Unavailable PROBLEMS Type Condition ICD9-CM Code [id number] Code Onset Dates Condition Status W/U Status Risk SNOMED Code Notes Problem Essential hypertension I10 confirmed [id number] Problem Obesity (BMI 30-39.9) E66.9 confirmed 242992380 Problem Gait instability R26.81 confirmed 49230787 Problem Irritable bowel syndrome with diarrhea K58.0 confirmed 330695848 Problem Mixed hyperlipidemi a E78.2 confirmed 207514932 Problem Type 2 diabetes mellitus without complication, without long-term current use of insulin E11.9 confirmed 607559139 Problem Thrombocytope harley D69.6 confirmed [id number] ALLERGIES Allergen (clinical drug ingredient) Drug/Non Drug Allergy documented on EMR Reaction Allergy Type Onset Date Status nabumetone Relafen Unknown Drug Allergy Active sertraline Zoloft([facility] Code:[address]-35) Unknown Drug Allergy Active ENCOUNTERS from 1945 to 2022-10-13 Encounter Location Date Provider Diagnosis [facility] [address] [facility] [id number] [address] September, SUJATHA STRAUSS Type 2 diabetes iris itus without complication, without long-term current use of insulin E11.9 ; Encounter for Medicare annual wellness exam Z00.00 ; Essential hypertension I10 ; Mixed hyperlipidemia E78.2 ; Thrombocytopenia D69.6 and Obesity (BMI 30-39.9) E66.9 IMMUNIZATIONS Vaccine Route Administration Date Status PRIVATE SHINGRIX (HERPES ZOS TER-2 DOSE) IM Intramuscular August 26, 2022 Administered PRIVATE SHINGRIX (HERPES ZOS TER-2 DOSE) IM Intramuscular Jun 24, 2022 Administered PRIVATE TDAP (BOOSTRIX) IM Intramuscular August 26 3 Administered PRIVATE FLUZONE HIGH DOSE QU AD 0.7ML (65 and UP) 2020 IM Intramuscular Mar 08, 2021 Administered PRIVATE HIGH DOSE FLU 22-23 (FLUZONE HD) AGE 65YRS AND UP Unknown Mar 02, 2022 Administer ed pcv20 (history) Unknown Mar 02, 2022 Administered 1st Booster MODERNA COVID-19 , mRNA, 0.25mL IM Intramuscular May 21, 2021 Administered influenza IIV3 (history) Unknown Mar 15, 2014 Adm inistered 1st Dose HRSA MODERNA, COVID -19, 0.5mL IM Intramuscular August 04, 2020 Administered 1st Booster MODERNA Bivalent , COVID-19, 0.5mL IM Intramuscular Jun 24, 2022 Administered PRIVATE HIGH DOSE FLU 22-23 (FLUZONE HD) AGE 65YRS AND UP Unknown Feb 10, 2020 Administer ed influenza iiv4 mdck (history) Unknown Mar 10 7 Administered 2nd Dose HRSA MODERNA, COVID -19, 0.5mL IM Intramuscular September 01, 2020 Administered influenza IIV3 high dose (history) Unknown Feb 012018 Administered influenza IIV3 high dose (history) Unknown Feb 012017 Administered influenza IIV3 high dose (history) Unknown Jan 312015 Administered influenza IIV3 (history) Unknown Mar 03, 2015 Adm inistered SOCIAL HISTORY Sex Assigned At : Social History Observation Description Sex Assigned At Unknown PHQ2 Question Answer Notes In the last 2 weeks, how oft en have you had little interest or pleasure in doing things? Not at all In the last 2 weeks, how oft en have you been feeling down, depressed, or hopeless? Not at all Total PHQ2 Score 0 REASON FOR REFERRAL No Information VITAL SIGNS Height 70 in September, Height-cm 177.8 cm September, Weight 245 lbs September, Weight-kg 111.13 kg September, Temperature 96.7 degrees Fahrenheit September, Heart Rate 52 bpm September, Respiratory Rate 18 bpm September, Oximetry 97 % September, BMI 35.15 kg/m2 September, Blood pressure systolic 140 mmHg September, Blood pressure diastolic 76 mmHg September, MEDICATIONS Medication SIG (Take, Route, Frequency, Duration) Notes Start Date End Date Status Shingrix 50 MCG/0.5ML as directed Intram uscular Once a day for 60 days Jun, Active Lisinopril 40 MG TAKE ONE (1) TABLET BY MOUTH ONCE DAILY Orally Once a day Active amLODIPine Besylate 10 MG TAKE ONE (1) T ABLET BY MOUTH ONCE DAILY Orally Once a day Active Jardiance 25 MG TAKE ONE (1) TABLET BY MOUTH ONCE DAILY for 90 Active Atenolol 100 MG TAKE ONE (1) TABLET BY MOUTH ONCE DAILY Orally Once a day Active metFORMIN HCl ER (MOD) 1000 MG 1 tablet meal Orally Once a day Mar, Active Atorvastatin Calcium 20 MG 1 tablet Orally Once a day Mar, Active Colesevelam HCl 625 MG TAKE THREE (3) TA BLETS BY MOUTH TWICE DAILY WITH MEALS Orally Twice a day for 90 days Active REASON FOR VISIT PT states that he is here for his [place] MEDICAL (GENERAL) HISTORY Type Description Date Medical History Type 2 diabetes Medical History Mixed hyperlipidemia Medical History Hypertension Medical History IBS-diarrhea Medical History Hx fibromyalgia Dx by Dr. Johnson Rheumatology Surgical History cholecystectomy 2014 Hospitalization History surgery- PTs request 201 5 MENTAL STATUS No Information ASSESSMENTS Encounter Date Diagnosis Assessment Notes Treatment Notes Treatment Clinical Notes September, Encounter for Medica re annual wellness exam (ICD-10 - Z00.00) September, Type 2 diabetes mellitus without complication, without long-term current use of insulin (ICD-10 - E11.9) Continue meds September, Essential hypertensi on (ICD-10 - I10) Reviewed BP log from past and stsolic ranges 128-140's. Will monitor. September, Mixed hyperlipidemia (ICD-10 - E78.2) Continue meds September, Thrombocytopenia (ICD-10 - D69.6) Continue meds September, Obesity (BMI 30-39.9 ) (ICD-10 - E66.9) PLAN OF TREATMENT Treatment Notes Assessment Notes Clinical Notes Type 2 diabetes mellitus wit hout complication, without long-term current use of insulin Continue meds Essential hypertension Reviewed BP log f rom past and stsolic ranges 128-140's. Will monitor. Mixed hyperlipidemia Continue meds Thrombocytopenia Continue meds Next Appt Details 1 Year Reason:AWV Provider Name:JENNIFER Razo DENNISON , 2022-11-28 11:20:00 AM, [address] [facility], [id number], [place], [address], Follow Up:1 YearAWV Insurance Providers Payer Name Payer Address Payer Phone Insured Name Patient Relationship to Insured Coverage Start Date Coverage End Date Subscriber Number Group Number [employer] Medicare HMO [place] Plan [address] [address] [facility] [phone] Me alan Benoit Self - patient is the insured [id number] [employer] Medicare Part A [address] [facility] [address] [phone] Me alan Benoit Self - patient is the insured [id number]
--- OUTSIDE RECORDS SUMMARY | 2023-04-10 14:02 | XMS REPORT ---
Author Author [facility] Address Unknown Phone Unavailable Care Team Providers Care Behavioral Health Case Manager Name Role Phone SUJATHA STRAUSS Unavailable PROBLEMS Type Condition ICD9-CM Code [id number] Code Onset Dates Condition Status W/U Status Risk SNOMED Code Notes Problem Essential hypertension I10 confirmed [id number] Problem Obesity (BMI 30-39.9) E66.9 confirmed 965160873 Problem Gait instability R26.81 confirmed 37932784 Problem Irritable bowel syndrome with diarrhea K58.0 confirmed 323954163 Problem Mixed hyperlipidemi a E78.2 confirmed 152856221 Problem Type 2 diabetes mellitus without complication, without long-term current use of insulin E11.9 confirmed 029083968 Problem Thrombocytope harley D69.6 confirmed 325305081 ALLERGIES Allergen (clinical drug ingredient) Drug/Non Drug Allergy documented on EMR Reaction Allergy Type Onset Date Status nabumetone Relafen Unknown Drug Allergy Active sertraline Zoloft([facility] Code:[address]-79) Unknown Drug Allergy Active ENCOUNTERS from 1945 to 2022-11-26 Encounter Location Date Provider Diagnosis [facility] [address] [facility] [id number] [place] [address] Nov, SUJATHA STRAUSS IMMUNIZATIONS Vaccine Route Administration Date Status influenza IIV3 (history) Unknown Mar 03, 2015 Adm inistered influenza IIV3 (history) Unknown Mar 15, 2014 Adm inistered PRIVATE SHINGRIX (HERPES ZOS TER-2 DOSE) IM Intramuscular August 26, 2022 Administered PRIVATE TDAP (BOOSTRIX) IM Intramuscular August 26 Administered influenza IIV3 high dose (history) Unknown Feb 012018 Administered influenza IIV3 high dose (history) Unknown Feb 012017 Administered influenza IIV3 high dose (history) Unknown Jan 312015 Administered 2nd Dose HRSA MODERNA, COVID -19, 0.5mL IM Intramuscular September 01, 2020 Administered 1st Dose HRSA MODERNA, COVID -19, 0.5mL IM Intramuscular August 04, 2020 Administered influenza iiv4 mdck (history) Unknown Mar 10 Administered PRIVATE HIGH DOSE FLU 22-23 (FLUZONE HD) AGE 65YRS AND UP Unknown Feb 10, 2020 Administer ed pcv20 (history) Unknown Mar 02, 2022 Administered PRIVATE HIGH DOSE FLU 22-23 (FLUZONE HD) AGE 65YRS AND UP Unknown Mar 02, 2022 Administer ed PRIVATE SHINGRIX (HERPES ZOS TER-2 DOSE) IM Intramuscular Jun 24, 2022 Administered PRIVATE FLUZONE HIGH DOSE QU AD 0.7ML (65 and UP) 2020 IM Intramuscular Mar 08, 2021 Administered 1st Booster MODERNA Bivalent , COVID-19, 0.5mL IM Intramuscular Jun 24, 2022 Administered 1st Booster MODERNA COVID-19 , mRNA, 0.25mL IM Intramuscular May 21, 2021 Administered SOCIAL HISTORY Sex Assigned At : Social [...] Score 0 REASON FOR REFERRAL No Information MEDICATIONS Medication SIG (Take, Route, Frequency, Duration) Notes Start Date End Date Status Shingrix 50 MCG/0.5ML as directed Intram uslar Once a day for 60 days Jun, Active Lisinopril 40 MG TAKE ONE (1) TABLET BY MOUTH ONCE DAILY Orally Once a day Active amLODIPine Besylate 10 MG TAKE ONE (1) T ABLET BY MOUTH ONCE DAILY Orally Once a day Active Atenolol 100 MG TAKE ONE (1) TABLET BY MOUTH ONCE DAILY Orally Once a day Active metFORMIN HCl ER (MOD) 1000 MG 1 tablet meal Orally Once a day Mar, Active Atorvastatin Calcium 20 MG 1 tablet Orally Once a day Mar, Active Jardiance 25 MG TAKE ONE (1) TABLET BY MOUTH ONCE DAILY for 90 Active REASON FOR VISIT Statin note MEDICAL (GENERAL) HISTORY Type Description Date Medical History Type 2 diabetes Medical History Mixed hyperlipidemia Medical History Hypertension Medical History IBS-diarrhea Medical History Hx fibromyalgia Dx by Dr. Johnson Rheumatology Surgical History cholecystectomy 2015 Hospitalization History surgery- PTs request [phone] MENTAL STATUS No Information PLAN OF TREATMENT Next Appt Details Provider Name:JENNIFER DENNISON , 2022-11-28 11:20:00 AM, [address] [facility], [id number], [place], [address], Insurance Providers Payer Name Payer Address Payer Phone Insured Name Patient Relationship to Insured Coverage Start Date Coverage End Date Subscriber Number Group Number [employer] Medicare HMO [place] Plan [address] [address] [facility] [id number] Me alan Benoit Self - patient is the insured [id number] [facility] [facility] [place] Part A [address] [facility] [address] Me alan Benoit Self - patient is the insured [id number]
--- NOTE | 2023-04-10 14:07 | Occ Therapy Progress Note ---
Therapy Progress Note Based on acute care documentation, no skilled OT needs identified. VIKA OT ARPAN OSEI OT Apr 10, 2023 14:07
--- NOTE | 2023-04-10 15:05 | Physical Therapy Evaluation ---
PT Evaluation-General Medical Diagnosis Admission Date Apr 10, 2023 at 13:56 Medical Diagnosis: COVID Onset Date: Apr 10, 2023 Therapy Diagnosis Therapy Diagnosis: Gait deficit Precautions Precautions/Isolations: Airborne Isolation, Droplet Isolation, Fall Prevention, Standard Precautions Weight Bear Status Right Lower Extremity: Right Full Weight Bearing Left Lower Extremity: Left Full Weight Bearing Referral Physician: Dr. Huggins Reason for Referral: Evaluation/Treatment Medical History Pertinent Medical History: HTN Social History Home: Single Level Current Living Status: Alone Prior Prior Level of Function SCALE: Activities may be completed with or without assistive devices. 7-Ntxyuqujxw-odkzuwi completes the activity by him/herself with no assistance from a helper. 5-Set-up or Clean-up Assistance-helper sets up or cleans up; patient completes activity. [place] assists only prior to or following the activity. 4-Supervision or Touching Assistance-helper provides verbal cues and/or touching/steadying and/or contact guard assistance as patient completes activity. Assistance may be provided throughout the activity or intermittently. 3-Partial/Moderate Assistance-helper does LESS THAN HALF the effort. [place] lifts, holds or supports trunk or limbs, but provides less than half the effort. 2-Substantial/Maximal Assistance-helper does MORE THAN HALF the effort. [place] lifts or holds trunk or limbs and provides more than half the effort. 9-Oewttroww-lovohg does ALL the effort. Patient does none of the effort to complete the activity. Or, the assistance of 2 or more helpers is required for the patient to complete the activity. If activity was not attempted, code reason: 7-Patient Refused. 9-Not Applicable-not attempted and the patient did not perform the activity before the current illness, exacerbation or injury. 10-Not Attempted due to Environmental Limitations-(lack of equipment, weather restraints, etc.). 88-Not Attempted due to Medical Conditions or Safety Concerns. Bed Mobility: 6 Transfers (B,C,W/C): 6 Gait: 6 Stairs: 6 Indoor Mobility (Ambulation): Independent Stairs: Independent Prior Devices Use: Other-see list below Prior Device Use: Cane PT Evaluation-Current Subjective Patient sitting at EOB upon PT arrival, agreeable to treatment. Rates pain at 0/10 currently. Pain Section J - Health Conditions 1. Rarely or not at all 2. Occasionally 3. Frequently 4. Almost constantly 8. Unable to answer Pain Effect on Sleep: 1 Pain Interference with Therapy: 1 Pain Interference w/Day-to-Day: 1 Objective Patient Orientation: Person, Place, Time, Situation ROM/Strength ROM Lower Extremities WFLs BLEs all planes Strength Lower Extremities 3/5 BLEs all planes Sensory Vision: Functional Hearing: Functional Sensation Right Lower Extremit: Intact Sensation Left Lower Extremity: Intact Transfers Roll Left & Right (QC): 4 Sit to Lying (QC): 4 Lying to Sitting/Side of Bed(Q: 4 Sit to Stand (QC): 3 Chair/Qcn-pl-Tcmbb Xfer(QC): 3 Toilet Transfer (QC): 3 Car Transfer (QC): 3 Gait Does the Patient Walk?: Yes Mode of Locomotion: Walk Anticipated Mode of Locomotion: Walk Walk 10 feet (QC): 3 Walk 50 ft with 2 Turns(QC): 3 Walk 150 ft (QC): 88 Walking 10ft/uneven surface-QC: 88 Distance: 90' Gait Assistive Device: Cane Single Point Wheelchair Training Does the Pt Use a Wheelchair?: No Wheel 50 ft with 2 turns (QC): 9 Wheel 150 ft (QC): 9 Stairs #of Steps: 0 1 Step (curb) (QC): 88 4 Steps (QC): 88 12 Steps (QC): 88 Balance Sitting Static: Normal Sitting Dynamic: Normal Standing Static: Fair Standing Dynamic: Poor Picking up an Object (QC): 88 Assessment/Needs Patient performs all observed transfers with min A. Patient ambulates 90 feet in the room, with cane, with Min A and verbal cues for safety, progression, posture and conservation of energy. Patient nurse reports patient will be out of COVID isolation on 04/14/23. Patient in chair post treatment with all needs met, nursing notified, call light in reach. Patient may benefit from FWW to improve balance and safety. Rehab Potential: Fair Equipment Needs FWW PT Shelter Goals Shelter Goals PT Shelter Goals Time Frame: May 01, 2023 Roll Left to Right (QC): 6 Sit to Lying (QC): 6 Lying-Sitting on Side/Bed(QC): 6 Sit to Stand (QC): 6 Chair/Pgp-om-Gsyfy Xfer(QC): 6 Toilet/Commode Transfer (QC): 6 Car Transfer (QC): 6 Does the Patient Walk: Yes Walk 10 feet (QC): 6 Walk 10ft-Uneven Surface(QC): 6 Walk 50ft with 2 Turns (QC): 6 Walk 150 ft (QC): 6 Does the Pt use WC or Scooter?: No Wheel 50 feet with 2 turns (QC: 9 Wheel 150 feet: 9 1 Step (curb) (QC): 4 4 Steps (QC): 4 12 Steps (QC): 4 Picking up an Object (QC): 4 PT Plan Problem List Problem List: Activity Tolerance, Functional Strength, Safety, Balance, Gait, Transfer, Bed Mobility, ROM Treatment/Plan Treatment Plan: Continue Plan of Care Treatment Plan: Bed Mobility, Education, Functional Activity Scotty, Functional Strength, Group Therapy, Gait, Safety, Therapeutic Exercise, Transfers Treatment Duration: May 01, 2023 Frequency: 5 times per week Estimated Hrs Per Day: .25 hour per day Safety Risks/Education Patient Education: Gait Training, Transfer Techniques Teaching Recipient: Patient Teaching Methods: Demonstration, Discussion Response to Teaching: Reinforcement Needed Time Time In: 1438 Time Out: 1503 DATE: Apr 10, 2023 Total Billed Treatment Time: 25 Total Billed Treatment Visit, MARYJANE CERVANTES JOHN A PT Apr 10, 2023 15:05
[2023-04-10] MEDS: ACETAMINOPHEN 500 MG TABLET PO SCH ×2 (15:49→23:03)
[2023-04-10] MEDS: inSUlin ASPART 1 UNIT/0.01 ML (PER UNIT) SC SCH ×2 (15:56→20:10)
[2023-04-10] MEDS: ENOXAPARIN 40 MG/0.4 ML SYRINGE SC SCH (15:57)
[2023-04-10] MEDS: SENNOSIDES 8.6 MG TABLET PO SCH (20:11)
[2023-04-10] MEDS: DOCUSATE SODIUM 100 MG CAPSULE PO SCH (20:11)
[2023-04-10 20:18] VITALS: BP 141/71
[2023-04-10] MEDS ORDERED: COLESEVELAM HCL 625 MG PO SCH (21:00)
[2023-04-11] MEDS: ACETAMINOPHEN 500 MG TABLET PO SCH ×3 (06:12→20:55)
[2023-04-11] MEDS: inSUlin ASPART 1 UNIT/0.01 ML (PER UNIT) SC SCH ×4 (06:16→20:54)
[2023-04-11] MEDS: RT-ALBUTEROL HFA 8.5 GM INHALER IH PRN ×3 (07:04→21:50)
[2023-04-11 07:40] VITALS: BP 135/74
[2023-04-11] MEDS: amLODIPine 5 MG TABLET PO SCH (09:27)
[2023-04-11] MEDS: SENNOSIDES 8.6 MG TABLET PO SCH ×2 (09:29→20:54)
[2023-04-11] MEDS: DOCUSATE SODIUM 100 MG CAPSULE PO SCH ×2 (09:29→20:54)
--- NOTE | 2023-04-11 09:50 | Physical Therapy Daily Note ---
PT Daily Note-Current Subjective Patient sitting at EOB upon PT arrival, agreeable to treatment. Patient rates pain at 0/10 currently. Pain Section J - Health Conditions 1. Rarely or not at all 2. Occasionally 3. Frequently 4. Almost constantly 8. Unable to answer Pain Effect on Sleep: 1 Pain Interference with Therapy: 1 Pain Interference w/Day-to-Day: 1 Transfers SCALE: Activities may be completed with or without assistive devices. 7-Itwbfrmxuh-suzoiun completes the activity by him/herself with no assistance from a helper. 5-Set-up or Clean-up Assistance-helper sets up or cleans up; patient completes activity. [place] assists only prior to or following the activity. 4-Supervision or Touching Assistance-helper provides verbal cues and/or touching/steadying and/or contact guard assistance as patient completes activity. Assistance may be provided throughout the activity or intermittently. 3-Partial/Moderate Assistance-helper does LESS THAN HALF the effort. [place] lifts, holds or supports trunk or limbs, but provides less than half the effort. 2-Substantial/Maximal Assistance-helper does MORE THAN HALF the effort. [place] lifts or holds trunk or limbs and provides more than half the effort. 9-Emwzryeaw-ryhmvm does ALL the effort. Patient does none of the effort to complete the activity. Or, the assistance of 2 or more helpers is required for the patient to complete the activity. If activity was not attempted, code reason: 7-Patient Refused. 9-Not Applicable-not attempted and the patient did not perform the activity before the current illness, exacerbation or injury. 10-Not Attempted due to Environmental Limitations-(lack of equipment, weather restraints, etc.). 88-Not Attempted due to Medical Conditions or Safety Concerns. Sit to Stand (QC): 3 Chair/Hod-ep-Bncgf Xfer(QC): 3 Weight Bearing Right Lower Extremity: Right Full Weight Bearing Left Lower Extremity: Left Full Weight Bearing Gait Training Distance: 60' Walk 10 feet (QC): 3 Walk 50 ft with 2 Turns(QC): 3 Assessment Current Status: Poor Progress Patient performs all observed transfers with min A. Patient ambulates 60 feet in the room, with FWW, with Min A and verbal cues for safety, progression, posture and conservation of energy. Patient demonstrates improved gait pattern and balance with FWW, however fatigues quicker this treatment. Patient nurse reports patient will be out of COVID isolation on 04/14/23. Patient in chair post treatment with all needs met, nursing notified, call light in reach. PT Inspector And Clipper Goals Inspector And Clipper Goals PT [facility] Goals Time Frame: May 01, 2023 Roll Left & Right (QC): 6 Sit to Lying (QC): 6 Lying-Sitting on Side/Bed(QC): 6 Sit to Stand (QC): 6 Chair/Yrl-yy-Pmxco Xfer(QC): 6 Toilet Transfer (QC): 6 Car Transfer (QC): 6 Does the Patient Walk: Yes Walk 10 feet (QC): 6 Walk 50ft with 2 Turns (QC): 6 Walk 150 ft (QC): 6 Walking 10ft on Uneven Surface: 6 1 Step (curb) (QC): 4 4 Steps (QC): 4 12 Steps (QC): 4 Picking up an Object (QC): 4 Does the Pt use WC or Scooter?: No Wheel 50 feet with 2 turns (QC: 9 Wheel 150 feet: 9 PT Plan Treatment/Plan Treatment Plan: Continue Plan of Care Treatment Plan: Bed Mobility, Education, Functional Activity Scotty, Functional Strength, Group Therapy, Gait, Safety, Therapeutic Exercise, Transfers Treatment Duration: May 01, 2023 Frequency: 5 times per week Estimated Hrs Per Day: .25 hour per day Safety Risks/Education Patient Education: Gait Training, Transfer Techniques Teaching Recipient: Patient Teaching Methods: Demonstration, Discussion Response to Teaching: Verbalize Understanding, Return Demonstration Time Time In: 907 Time Out: 925 DATE: Apr 11, 2023 Total Billed Treatment Time: 18 Total Billed Treatment Visit, REYES ROQUE PT Apr 11, 2023 09:50
[2023-04-11] MEDS: ENOXAPARIN 40 MG/0.4 ML SYRINGE SC SCH (16:53)
[2023-04-11 20:51] VITALS: BP 138/70
[2023-04-11] MEDS: CALCIUM CARBONATE 500 MG CHEW TABLET PO PRN (20:55)
[2023-04-12] MEDS: inSUlin ASPART 1 UNIT/0.01 ML (PER UNIT) SC SCH ×4 (06:08→20:18)
[2023-04-12] MEDS: ACETAMINOPHEN 500 MG TABLET PO SCH ×3 (06:25→21:13)
[2023-04-12 08:12] VITALS: BP 135/82
[2023-04-12] MEDS: SENNOSIDES 8.6 MG TABLET PO SCH ×2 (08:43→20:48)
[2023-04-12] MEDS: DOCUSATE SODIUM 100 MG CAPSULE PO SCH ×2 (08:43→20:48)
[2023-04-12] MEDS: amLODIPine 5 MG TABLET PO SCH (08:43)
[2023-04-12] MEDS: ENOXAPARIN 40 MG/0.4 ML SYRINGE SC SCH (17:16)
[2023-04-12 20:12] VITALS: BP 159/75
[2023-04-12] MEDS: CALCIUM CARBONATE 500 MG CHEW TABLET PO PRN (21:15)
[2023-04-13] MEDS: ACETAMINOPHEN 500 MG TABLET PO SCH ×3 (06:07→21:28)
[2023-04-13] MEDS: inSUlin ASPART 1 UNIT/0.01 ML (PER UNIT) SC SCH ×4 (06:07→20:38)
[2023-04-13 08:39] VITALS: BP 107/68
[2023-04-13] MEDS: SENNOSIDES 8.6 MG TABLET PO SCH ×2 (09:02→20:47)
[2023-04-13] MEDS: DOCUSATE SODIUM 100 MG CAPSULE PO SCH ×2 (09:02→20:47)
[2023-04-13] MEDS: amLODIPine 5 MG TABLET PO SCH (09:02)
[2023-04-13] MEDS: ENOXAPARIN 40 MG/0.4 ML SYRINGE SC SCH (16:39)
[2023-04-13 20:07] VITALS: BP 136/71
[2023-04-14] MEDS: ACETAMINOPHEN 500 MG TABLET PO SCH ×4 (06:04→21:25)
[2023-04-14] MEDS: inSUlin ASPART 1 UNIT/0.01 ML (PER UNIT) SC SCH ×4 (06:05→21:11)
[2023-04-14 08:42] VITALS: BP 122/67
[2023-04-14] MEDS: DOCUSATE SODIUM 100 MG CAPSULE PO SCH ×2 (09:25→21:11)
[2023-04-14] MEDS: SENNOSIDES 8.6 MG TABLET PO SCH ×2 (09:25→21:11)
[2023-04-14] MEDS: amLODIPine 5 MG TABLET PO SCH (09:26)
--- NOTE | 2023-04-14 10:42 | Progress Note - Hospitalist ---
Subjective HPI/CC On Admission Date Seen by Provider: Apr 14, 2023 Time Seen by Provider: 11:00 Subjective/Events-last exam Patient doing well Ambulating better No SOB Out of COVID isolation tomorrow Review of Systems General: Fatigue, Malaise Objective Exam Vital Signs Vital Signs Date Time Temp Pulse Resp B/P (MAP) Pulse Ox O2 Delivery O2 Flow Rate FiO2 04/14/23 20:47 36.3 83 16 140/70 (93) 98 Room Air 04/13/23 07:41 0.00 Capillary Refill : General Appearance: No Apparent Distress, WD/WN Respiratory: Lungs Clear Cardiovascular: Regular Rate, Rhythm Neurologic/Psychiatric: Alert, Oriented x3 Results/Procedures Lab Patient resulted labs reviewed. Assessment/Plan Assessment and Plan Assess & Plan/Chief Complaint Assessment: COVID Weakness Plan: NHP? LAUREN LAURA DO Apr 14, 2023 10:42
--- NOTE | 2023-04-14 13:46 | Physical Therapy Daily Note ---
PT Daily Note-Current Subjective Patient reports he is feeling better and sleeping at night. Agrees to PT. Pain Section J - Health Conditions 1. Rarely or not at all 2. Occasionally 3. Frequently 4. Almost constantly 8. Unable to answer Pain Effect on Sleep: 1 Pain Interference with Therapy: 1 Pain Interference w/Day-to-Day: 1 Mental Status Patient Orientation: Normal For Age Transfers SCALE: Activities may be completed with or without assistive devices. 8-Mycrkvxfes-dazxlqr completes the activity by him/herself with no assistance from a helper. 5-Set-up or Clean-up Assistance-helper sets up or cleans up; patient completes activity. [place] assists only prior to or following the activity. 4-Supervision or Touching Assistance-helper provides verbal cues and/or touching/steadying and/or contact guard assistance as patient completes activity. Assistance may be provided throughout the activity or intermittently. 3-Partial/Moderate Assistance-helper does LESS THAN HALF the effort. [place] lifts, holds or supports trunk or limbs, but provides less than half the effort. 2-Substantial/Maximal Assistance-helper does MORE THAN HALF the effort. [place] lifts or holds trunk or limbs and provides more than half the effort. 6-Feodwdjls-ddbdhp does ALL the effort. Patient does none of the effort to complete the activity. Or, the assistance of 2 or more helpers is required for the patient to complete the activity. If activity was not attempted, code reason: 7-Patient Refused. 9-Not Applicable-not attempted and the patient did not perform the activity before the current illness, exacerbation or injury. 10-Not Attempted due to Environmental Limitations-(lack of equipment, weather restraints, etc.). 88-Not Attempted due to Medical Conditions or Safety Concerns. Roll Left & Right (QC): 6 Sit to Lying (QC): 6 Lying to Sitting/Side of Bed(Q: 6 Sit to Stand (QC): 6 Chair/Itw-rs-Amank Xfer(QC): 6 Toilet Transfer (QC): 6 Car Transfer (QC): 6 Weight Bearing Right Lower Extremity: Right Full Weight Bearing Left Lower Extremity: Left Full Weight Bearing Gait Training Distance: 250' in room Walk 10 feet (QC): 6 Walk 50 ft with 2 Turns(QC): 6 Walk 150 ft (QC): 6 Walking 10ft/uneven surface-QC: 6 Gait Assistive Device: FWW slow, steady, functional gait sequence Wheelchair Training Wheel 50 ft with 2 turns (QC): 9 Wheel 150 ft (QC): 9 Stair Training 1 Step (curb) (QC): 10 4 Steps (QC): 10 12 Steps (QC): 10 Balance Picking up an Object (QC): 6 Assessment Patient report he is up independently in room without difficulty. Patient is currently at independent LOF with gross motor skills. Ambulates with FWW functional distance without difficulty. PT Icing And Glaze Maker Goals Custodial Goals PT Custodial Goals Time Frame: May 01, 2023 Roll Left & Right (QC): 6 Sit to Lying (QC): 6 Lying-Sitting on Side/Bed(QC): 6 Sit to Stand (QC): 6 Chair/Qjb-pv-Qdmyg Xfer(QC): 6 Toilet Transfer (QC): 6 Car Transfer (QC): 6 Does the Patient Walk: Yes Walk 10 feet (QC): 6 Walk 50ft with 2 Turns (QC): 6 Walk 150 ft (QC): 6 Walking 10ft on Uneven Surface: 6 1 Step (curb) (QC): 4 4 Steps (QC): 4 12 Steps (QC): 4 Picking up an Object (QC): 4 Does the Pt use WC or Scooter?: No Wheel 50 feet with 2 turns (QC: 9 Wheel 150 feet: 9 PT Plan Treatment/Plan Treatment Plan: Continue Plan of Care Treatment Plan: Bed Mobility, Education, Functional Activity Scotty, Functional Strength, Group Therapy, Gait, Safety, Therapeutic Exercise, Transfers Treatment Duration: May 01, 2023 Frequency: 5 times per week Estimated Hrs Per Day: .25 hour per day Time Time In: 1310 Time Out: 1325 DATE: Apr 14, 2023 Total Billed Treatment Time: 15 Total Billed Treatment 1 visit FA 15 min PENELOPE CRAIG PT Apr 14, 2023 13:46
[2023-04-14] MEDS: ENOXAPARIN 40 MG/0.4 ML SYRINGE SC SCH (16:00)
[2023-04-14 16:21] VITALS: BP 120/77
[2023-04-14 20:47] VITALS: BP 140/70
[2023-04-15] MEDS: inSUlin ASPART 1 UNIT/0.01 ML (PER UNIT) SC SCH ×4 (05:58→20:20)
[2023-04-15] MEDS: ACETAMINOPHEN 500 MG TABLET PO SCH ×3 (05:58→21:32)
[2023-04-15 08:00] VITALS: BP 148/76
[2023-04-15] MEDS: DOCUSATE SODIUM 100 MG CAPSULE PO SCH ×2 (08:20→20:20)
[2023-04-15] MEDS: SENNOSIDES 8.6 MG TABLET PO SCH ×2 (08:20→20:20)
[2023-04-15] MEDS: amLODIPine 5 MG TABLET PO SCH (08:26)
[2023-04-15] MEDS ORDERED: LISI40TA9 PO (12:07)
[2023-04-15] MEDS ORDERED: ATEN100T PO (12:07)
[2023-04-15] MEDS ORDERED: EMPA10TA PO (12:07)
[2023-04-15] MEDS ORDERED: ENOX40DI8 SC (12:07)
[2023-04-15] MEDS ORDERED: LORA10TA76 PO (12:07)
[2023-04-15] MEDS ORDERED: PSYL3.4P5 PO (12:07)
[2023-04-15] MEDS ORDERED: AMLO-251 PO (12:07)
[2023-04-15] MEDS ORDERED: COLE625T14 PO (12:07)
[2023-04-15] MEDS ORDERED: ACET-93 PO (12:07)
[2023-04-15] MEDS ORDERED: ATOR20TA66 PO (12:07)
--- NOTE | 2023-04-15 12:08 | Discharge Inst-Skilled Nursing ---
Discharge Inst-Skilled NF Reconcile Patient Problems Problems Reviewed?: Yes Patient Instructions Patient Problems: Debility Post COVID Consult/Follow Up/Orders Follow Up Appt.: PCP f/u post NH DC Skilled NF Admit to: Certification (SNF) I certify that SNF services are required to be given on an inpatient basis because of the above named patient's need for residential care on a continuing basis for the conditions(s) for which he/she was receiving inpatient hospital services prior to his/her transfer to the SNF. Alf Facility Order: Nursing Services, [facility] [employer] Supervisor-Evaluate & Treat, Physical Therapy-Evaluate & Treat Oxygen Delivery Method: Room Air Discharge Diet: No Restrictions Resuscitation Status: Do Not Resuscitate New & Resume Previous Orders New Medications: Acetaminophen (Acetaminophen) 500 Mg Tablet 1000 MG PO Q8HR, #60 TAB Enoxaparin Sodium (Enoxaparin Sodium) 40 Mg/0.4 Ml Syringe 40 MG SC Q24H, #14 SYRINGE Continued Medications: Amlodipine Besylate (Amlodipine Besylate) 10 Mg Tablet 10 MG PO 1700, #30 TAB (This prescription has been renewed) Atenolol (Atenolol) 100 Mg Tablet 100 MG PO 1700, #30 TAB (This prescription has been renewed) Atorvastatin Calcium (Atorvastatin Calcium) 20 Mg Tablet 20 MG PO 1700, #30 TAB (This prescription has been renewed) Colesevelam HCl (Colesevelam HCl) 625 Mg Tablet 625 MG PO BID, #60 TAB (This prescription has been renewed) Empagliflozin (Jardiance) 10 Mg Tablet 10 MG PO DAILY, #30 TAB (This prescription has been renewed) Lisinopril (Lisinopril) 40 Mg Tablet 40 MG PO DAILY, #30 TAB (This prescription has been renewed) Loratadine (Claritin) 10 Mg Tablet 10 MG PO DAILY, #30 TAB (This prescription has been renewed) Psyllium Husk/Aspartame (Metamucil Fiber Singles Packet) 3.4 Gram Powd.pack 3.4 GM PO DAILY PRN for DIARRHEA, #30 EACH (This prescription has been renewed) Jaylene Elizalde Apr 15, 2023 12:07 JAYLENE ELIZALDE DO Apr 15, 2023 12:08
--- NOTE | 2023-04-15 12:08 | Discharge Summary ---
Diagnosis/Chief Complaint Date of Admission Apr 10, 2023 at 13:56 Date of Discharge Discharge Date: Apr 15, 2023 Discharge Summary Discharge Physical Examination Allergies: Coded Allergies: nabumetone (Verified Allergy, Unknown, Unknown, 04/14/23) sertraline (Verified Allergy, Unknown, Unknown, 04/14/23) Uncoded Allergies: SULFA (Allergy, Unknown, HIVES, 04/05/23) Vitals & I&Os Vital Signs Date Time Temp Pulse Resp B/P (MAP) Pulse Ox O2 Delivery O2 Flow Rate FiO2 04/15/23 09:00 Room Air 04/15/23 08:00 36.1 77 16 148/76 (100) 96 04/13/23 07:41 0.00 Hospital Course Labs (last 24 hrs) Laboratory Tests 04/10/23 16:33: Glucometer 109 04/10/23 20:07: Glucometer 120H 04/11/23 06:14: Glucometer 89 04/11/23 11:16: Glucometer 104 04/11/23 16:20: Glucometer 121H 04/11/23 20:50: Glucometer 95 04/12/23 06:06: Glucometer 89 04/12/23 12:03: Glucometer 100 04/12/23 16:01: Glucometer 72 04/12/23 20:15: Glucometer 125H 04/13/23 06:04: Glucometer 87 04/13/23 11:28: Glucometer 84 04/13/23 16:17: Glucometer 94 04/13/23 20:11: Glucometer 114H 04/14/23 05:56: Glucometer 74 04/14/23 11:50: Glucometer 104 04/14/23 16:23: Glucometer 117H 04/14/23 20:50: Glucometer 115H 04/15/23 05:57: Glucometer 101 04/15/23 11:50: Glucometer 92 04/15/23 16:08: Glucometer 119H Pending Labs Laboratory Tests 04/10/23 16:33: Glucometer 109 04/10/23 20:07: Glucometer 120 04/11/23 06:14: Glucometer 89 04/11/23 11:16: Glucometer 104 04/11/23 16:20: Glucometer 121 04/11/23 20:50: Glucometer 95 04/12/23 06:06: Glucometer 89 04/12/23 12:03: Glucometer 100 04/12/23 16:01: Glucometer 72 04/12/23 20:15: Glucometer 125 04/13/23 06:04: Glucometer 87 04/13/23 11:28: Glucometer 84 04/13/23 16:17: Glucometer 94 04/13/23 20:11: Glucometer 114 04/14/23 05:56: Glucometer 74 04/14/23 11:50: Glucometer 104 04/14/23 16:23: Glucometer 117 04/14/23 20:50: Glucometer 115 04/15/23 05:57: Glucometer 101 04/15/23 11:50: Glucometer 92 04/15/23 16:08: Glucometer 119 Discharge Home Medications: Active Scripts Active Acetaminophen 500 Mg Tablet 1,000 Mg PO Q8HR Enoxaparin Sodium 40 Mg/0.4 Ml Syringe 40 Mg SC Q24H Claritin (Loratadine) 10 Mg Tablet 10 Mg PO DAILY Amlodipine Besylate 10 Mg Tablet 10 Mg PO 1700 Atenolol 100 Mg Tablet 100 Mg PO 1700 Lisinopril 40 Mg Tablet 40 Mg PO DAILY Atorvastatin Calcium 20 Mg Tablet 20 Mg PO 1700 Metamucil Fiber Singles Packet (Psyllium Husk/Aspartame) 3.4 Gram Powd.pack 3.4 Gm PO DAILY PRN Colesevelam HCl 625 Mg Tablet 625 Mg PO BID Jardiance (Empagliflozin) 10 Mg Tablet 10 Mg PO DAILY Instructions to patient/family Please see electronic discharge instructions given to patient. LAUREN LAURA DO Apr 15, 2023 12:08
--- NOTE | 2023-04-15 13:22 | Physical Therapy Progress Note ---
Therapy Progress Note Patient observed up in his room independently and declined PT at this time. Patient reports he ambulates in his room throughout the day. Plan dismissal to [place] tomorrow per SVETA. PENELOPE CRAIG PT Apr 15, 2023 13:22
[2023-04-15] MEDS: ENOXAPARIN 40 MG/0.4 ML SYRINGE SC SCH (15:55)
[2023-04-15 19:24] VITALS: BP 121/67
[2023-04-16] MEDS: inSUlin ASPART 1 UNIT/0.01 ML (PER UNIT) SC SCH ×2 (06:02→11:37)
[2023-04-16] MEDS: ACETAMINOPHEN 500 MG TABLET PO SCH (06:02)
[2023-04-16 07:49] VITALS: BP 145/88
[2023-04-16] MEDS: amLODIPine 5 MG TABLET PO SCH (08:52)
[2023-04-16] MEDS: SENNOSIDES 8.6 MG TABLET PO SCH (08:53)
[2023-04-16] MEDS: DOCUSATE SODIUM 100 MG CAPSULE PO SCH (08:53)
[2023-04-16 13:10] VITALS: BP 145/88
== END 2023-04-16 13:10 | DRG 179 ==
LOC: 4TH 13:56
PROVIDERS: ADMIT Family Medicine; ATTEND Internal Medicine
PROC: 8E0ZXY6 Isolation (ICD-10-PCS; principal; 2023-04-10)
DX: U07.1 COVID-19 (principal); R53.1 Weakness; E11.9 Type 2 diabetes mellitus without complications; I10 Essential (primary) hypertension; E78.00 Pure hypercholesterolemia, unspecified; K58.9 Irritable bowel syndrome, unspecified; Z88.2 Allergy status to sulfonamides; Z79.84 Long term (current) use of oral hypoglycemic drugs; Z79.899 Other long term (current) drug therapy
CPT/HCPCS: 82947; 94640

== ENCOUNTER 2023-05-03 08:59 | Emergency (ER) | payer MEDICARE ==
[~2023-05-03] VITALS: Ht 177 cm; Wt 105.2 kg
[~2023-05-03 08:59] MED LIST changes: +ACET-93 PO; +ENOX40DI8 SC
--- NOTE | 2023-05-03 09:06 | ED Abdominal Pain ---
General Stated Complaint: ABD DISTENTION Source of Information: Patient, EMS Exam Limitations: No Limitations History of Present Illness Date Seen by Provider: May 03, 2023 Time Seen by Provider: 08:55 Initial Comments 78-year-old male presents the emergency department today from a local nursing facility for abdominal distention, pain and nausea. He has had no vomiting. He states symptoms have been present off and on for "several months." He states his abdomen is distended today worse that has been in the recent past. He does have some mild diffuse abdominal pain without any focal tenderness. Nausea but no vomiting. Denies any fevers or chills. He has had some difficulty initiating his urinary stream with the onset of his abdominal distention which is new for him. No dysuria or hematuria. He had a normal bowel movement about 3:00 yesterday that was formed, not straining. Only abdominal surgery is a cholecystectomy in the remote past. All other systems reviewed and negative except documented per HPI. Voice recognition software was used to help create this chart Allergies and Home Medications Allergies Coded Allergies: nabumetone (Verified Allergy, Unknown, Unknown, 04/14/23) sertraline (Verified Allergy, Unknown, Unknown, 04/14/23) Uncoded Allergies: SULFA (Allergy, Unknown, HIVES, 04/05/23) Patient Home Medication List Home Medication List Reviewed: Yes Acetaminophen (Acetaminophen) 500 Mg Tablet, 1,000 MG PO Q8HR Prescribed by: LAUREN LAURA on 04/15/231206 Amlodipine Besylate (Amlodipine Besylate) 10 Mg Tablet, 10 MG PO 1700 Prescribed by: LAUREN LAURA on 04/15/231206 Atenolol (Atenolol) 100 Mg Tablet, 100 MG PO 1700 Prescribed by: LAUREN LAURA on 04/15/231206 Atorvastatin Calcium (Atorvastatin Calcium) 20 Mg Tablet, 20 MG PO 1700 Prescribed by: LAUREN LAURA on 04/15/231206 Colesevelam HCl (Colesevelam HCl) 625 Mg Tablet, 625 MG PO BID Prescribed by: LAUREN LAURA on 04/15/231206 Empagliflozin (Jardiance) 10 Mg Tablet, 10 MG PO DAILY Prescribed by: LAUREN LAURA on 04/15/231206 Enoxaparin Sodium (Enoxaparin Sodium) 40 Mg/0.4 Ml Syringe, 40 MG SC Q24H Prescribed by: LAUREN LAURA on 04/15/23 120 Lisinopril (Lisinopril) 40 Mg Tablet, 40 MG PO DAILY Prescribed by: LAUREN LAURA on 04/15/231206 Loratadine (Claritin) 10 Mg Tablet, 10 MG PO DAILY Prescribed by: LAUREN LAURA on 04/15/231206 Psyllium Husk/Aspartame (Metamucil Fiber Singles Packet) 3.4 Gram Powd.pack, 3.4 GM PO DAILY PRN for DIARRHEA Prescribed by: LAUREN LAURA on 04/15/23 120 Review of Systems Review of Systems Constitutional: see HPI Past Vnkbvpx-Epcmsp-Tdnxxb Hx Patient Social History Tobacco Use?: No Use of E-Cig and/or Vaping dev: No Substance use?: No Alcohol Use?: No Past Medical History Surgeries: Yes Eye Surgery Respiratory: No Cardiac: Yes High Cholesterol, Hypertension Reproductive Disorders: No Gastrointestinal: No Diabetes, Non-Insulin dep HEENT: Yes Cataract Anxiety, Depression Physical Exam Vital Signs Vital Signs - First Documented 05/03/23 09:07 Temp 36.7 Pulse 57 Resp 18 B/P (MAP) 142/91 (108) Pulse Ox 97 Capillary Refill : Height/Weight/BMI Height: '" Weight: lbs. oz. kg; 32.55 BMI Method:Stated General Appearance: WD/WN, no apparent distress HEENT: normal ENT inspection, pharynx normal Neck: non-tender, supple Respiratory: chest non-tender, lungs clear, normal breath sounds, no respiratory distress, no accessory muscle use Cardiovascular: regular rate, rhythm, no murmur Gastrointestinal: soft, other (Abdomen is distended with some tympany. He has some diffuse mild tenderness without rebound or guarding. No mass organomegaly. No skin changes.) Extremities: normal capillary refill, other (3+ pitting edema bilateral lower extremities) Neurologic/Psychiatric: alert, oriented x 3 Skin: normal color, warm/dry Procedures/Interventions Procedure: Ultrasound-guided paracentesis Indication: Large volume ascites, abdominal pain Patient was prepped and draped in normal sterile fashion after a suitable window was identified for paracentesis free of bowel. This was identified in the right lower to mid abdomen. Area was then prepped and draped. Adequate anesthesia achieved with 1% lidocaine without epinephrine. The patient tolerated this well without difficulty. Small skin apoorva was made with an 11 blade. Blunt needle was advanced with the pigtail catheter overlying with continuous negative pressure on the syringe until penetrated into the abdominal cavity and ascites fluid was obtained. The advancement was immediately stopped once ascites was was obtained and the pigtail catheter was advanced without difficulty. Again the patient tolerated this well without any complications. 60 mL of fluid were removed with a syringe and will be sent to lab for further evaluation. Tubing is and hooked to wall suction at 80 mm pressure. Plan to drain no more than 5 L for patient comfort and diagnostic purposes. No complications. Progress/Results/Core Measures Results/Orders Lab Results Laboratory Tests Test 05/03/23 09:05 05/03/23 09:50 05/03/23 11:27 Range/Units White Blood Count 5.3 4.3-11.0 10^3/uL Red Blood Count 4.59 4.30-5.52 10^6/uL Hemoglobin 12.8 L 13.3-17.7 g/dL Hematocrit 41 40-54 % Mean Corpuscular Volume 90 80-99 fL Mean Corpuscular Hemoglobin 28 25-34 pg Mean Corpuscular Hemoglobin Concent 31 L 32-36 g/dL Red Cell Distribution Width 16.2 H 10.0-14.5 % Platelet Count 117 L 130-400 10^3/uL Mean Platelet Volume 9.7 9.0-12.2 fL Immature Granulocyte % (Auto) 0 % Neutrophils (%) (Auto) 54 42-75 % Lymphocytes (%) (Auto) 35 12-44 % Monocytes (%) (Auto) 9 0-12 % Eosinophils (%) (Auto) 2 0-10 % Basophils (%) (Auto) 1 0-10 % Neutrophils # (Auto) 2.9 1.8-7.8 10^3/uL Lymphocytes # (Auto) 1.8 1.0-4.0 10^3/uL Monocytes # (Auto) 0.5 0.0-1.0 10^3/uL Eosinophils # (Auto) 0.1 0.0-0.3 10^3/uL Basophils # (Auto) 0.0 0.0-0.1 10^3/uL Immature Granulocyte # (Auto) 0.0 0.0-0.1 10^3/uL Percent Immature Platelet Fraction 2.4 0.0-7.6 % Sodium Level 136 135-145 MMOL/L Potassium Level 4.4 3.6-5.0 MMOL/L Chloride Level 106 98-107 MMOL/L Carbon Dioxide Level 24 21-32 MMOL/L Anion Gap 6 5-14 MMOL/L Blood Urea Nitrogen 11 7-18 MG/DL Creatinine 0.83 0.60-1.30 MG/DL Estimat Glomerular Filtration Rate 90 BUN/Creatinine Ratio 13 Glucose Level 82 70-105 MG/DL Calcium Level 8.3 L 8.5-10.1 MG/DL Corrected Calcium 9.3 8.5-10.1 MG/DL Total Bilirubin 0.8 0.1-1.0 MG/DL Aspartate Amino Transf (AST/SGOT) 30 5-34 U/L Alanine Aminotransferase (ALT/SGPT) 16 0-55 U/L Alkaline Phosphatase 268 H 40-136 U/L Total Protein 7.5 6.4-8.2 GM/DL Albumin 2.7 L 3.2-4.5 GM/DL Lipase 29 8-78 U/L Body Fluid Source PERITON Body Fluid Color YELLOW Body Fluid Appearance CLEAR Body Fluid WBC 0.102 10^3/uL Body Fluid RBC 0.001 10^6/uL Body Fl Polynuclear WBCs (%)(Auto) 1.0 % Body Fluid Mononuclear Cells % Auto 99.0 % Body Fluid Slide Review Yes Body Fluid Total Protein 2.3 G/DL Body Fluid Albumin 1.1 G/DL Body Fluid Lactate Dehydrogenase 45 U/L My Orders Orders - JETHRO MCCALL DO Comprehensive Metabolic Panel (05/03/23 09:04) Lipase (05/03/23 09:04) Ct Abdomen/Pelvis W (05/03/23 09:04) Cbc And Automated Diff (05/03/23 09:04) Ed Iv/Invasive Line Start (05/03/23 09:04) Fentanyl Injection (Fentanyl Injection (05/03/23 09:15) Iohexol Injection (Omnipaque 350 Mg/Ml 1 (05/03/23 10:30) Received Contrast (Hold Metformin- Contr (05/03/23 10:30) Ns (Ivpb) 100 Ml (Sodium Chloride 0.9% 1 (05/03/23 10:30) Lidocaine 1% Inj 20 Ml (Xylocaine 1% Inj (05/03/23 11:18) Total Protein,Body Fluid (05/03/23 11:29) Ldh,Body Fluid (05/03/23 11:29) Albumin,Body Fluid (05/03/23 11:29) Body Fluid Cell Count (05/03/23 11:29) Medications Given in ED Current Medications Medications Dose Ordered Sig/Joelle Route Start Time Stop Time Status Last Admin Dose Admin Fentanyl Citrate 50 mcg ONCE ONCE IVP 05/03/23 09:15 05/03/23 09:16 DC 05/03/23 09:15 50 MCG Iohexol 100 ml ONCE ONCE IV 05/03/23 10:30 05/03/23 10:31 DC 05/03/23 10:41 80 ML Sodium Chloride 100 ml ONCE ONCE IV 05/03/23 10:30 05/03/23 10:31 DC 05/03/23 10:41 80 ML Vital Signs/I&O 05/03/23 09:07 Temp 36.7 Pulse 57 Resp 18 B/P (MAP) 142/91 (108) Pulse Ox 97 Departure Communication (Admissions) Labs available and reviewed from the outside facility from 04/30. Chemistry is unremarkable except for calcium of 7.6, mildly elevated alkaline phosphatase. CBC is remarkable only for WBC of 4.1 and platelets of 108. We will go ahead and get repeat lab testing here, get a CT scan to evaluate for ascites, obstruction, occult cancer. He is currently hemodynamically stable. CT scan shows large volume ascites, questionable area in the liver that will likely need follow-up with MRI. Paracentesis performed for comfort as well as diagnostic purposes. This is transudative in nature making malignancy less likely. He does have known cirrhosis diagnosed on his ultrasound recently. Is unclear what is caused his cirrhosis but he has significant fatty liver and this may be contributory. He is feeling much better after paracentesis with no further pain. He is afebrile. There were no white blood cells in his paracentesis fluids to indicate spontaneous bacterial peritonitis. We discharged back to the nursing facility in stable condition with supportive care and primary care follow-up as well as GI follow-up. Impression Primary Impression: Ascites Qualified Codes: R18.8 - Other ascites Additional Impression: Abdominal wall pain Disposition: 01 HOME, SELF-CARE Condition: Stable Departure-Patient Inst. Referrals: JENNIFER DENNISON APRN (PCP/Family) Primary Care Physician Patient Instructions: Fluid in the Belly (Ascites) (DC), Cirrhosis (DC) Add. Discharge Instructions: As discussed your fluid does not lean towards a cancer diagnosis at this time however cancer cannot fully be excluded in this manner. There was a small area in your liver which should be followed up with further imaging. Discussed this with your doctor. I believe the fluid in your abdomen is likely related to cirrhosis. You will need to follow-up with a GI specialist as well as your primary care doctor for further treatment options. You may continue to have a small amount of drainage from your abdomen where we put the needle in for drainage. This is normal. Change the dressing as needed. Fluid will likely increase from this area if you are up and about more so try to take it easy for now. Return to the emergency department for any severe concerns. JETHRO MCCALL DO May 03, 2023 09:06
[2023-05-03 09:15] LABS: BASOPHILS % (AUTO) 1 % (0-10)
[2023-05-03] MEDS ORDERED: fentaNYL INJECTION 100 MCG/2 ML VIAL IVP ONE (09:15)
[2023-05-03 09:17] LABS: EOSINOPHILS # (AUTO) 0.1 10^3/uL (0.0-0.3); EOSINOPHILS % (AUTO) 2 % (0-10); HEMATOCRIT 41 % (40-54); HEMOGLOBIN 12.8 g/dL (13.3-17.7); LYMPHOCYTES # (AUTO) 1.8 10^3/uL (1.0-4.0); LYMPHOCYTES % (AUTO) 35 % (12-44); MEAN CORPUSCULAR HEMOGLOBIN 28 pg (25-34); MEAN CORPUSCULAR HGB CONC 31 g/dL (32-36); MEAN CORPUSCULAR VOLUME 90 fL (80-99); MEAN PLATELET VOLUME 9.7 fL (9.0-12.2); MONOCYTES # (AUTO) 0.5 10^3/uL (0.0-1.0); MONOCYTES % (AUTO) 9 % (0-12); NEUTROPHILS # (AUTO) 2.9 10^3/uL (1.8-7.8); NEUTROPHILS % (AUTO) 54 % (42-75); PLATELET COUNT 117 10^3/uL (130-400); WHITE BLOOD COUNT 5.3 10^3/uL (4.3-11.0)
[2023-05-03 10:09] LABS: ALBUMIN 2.7 GM/DL (3.2-4.5); POTASSIUM 4.4 MMOL/L (3.6-5.0)
[2023-05-03 10:10] LABS: CALCIUM 8.3 MG/DL (8.5-10.1)
[2023-05-03 10:11] LABS: TOTAL PROTEIN 7.5 GM/DL (6.4-8.2)
[2023-05-03 10:13] LABS: BILIRUBIN,TOTAL 0.8 MG/DL (0.1-1.0)
[2023-05-03 10:15] LABS: CREATININE SERUM 0.83 MG/DL (0.60-1.30)
[2023-05-03] MEDS ORDERED: IOHEXOL 350 MG/ML 100 ML (OMNIPAQUE 350) VIAL IV ONE (10:30)
[2023-05-03] MEDS ORDERED: NS 100 ML (IVPB) BAG IV ONE (10:30)
[2023-05-03] MEDS ORDERED: HOLD METFORMIN - RECEIVED CONTRAST 20 ML VIAL IV SCH (10:30)
--- NOTE | 2023-05-03 10:54 | Diagnostic Imaging Report ---
PROCEDURE: CT abdomen and pelvis with contrast. TECHNIQUE: Multiple contiguous axial images were obtained through the abdomen and pelvis after administration of intravenous contrast. Auto Exposure Controls were utilized during the CT exam to meet ALARA standards for radiation dose reduction. All CT scans use one or more of the following dose optimizing techniques: Automated exposure control, MA and/or KvP adjustment based on patient size and exam type or iterative reconstruction. INDICATION: Abdominal distention, with pain and nausea. FINDINGS: Note is made of septal thickening and possible interstitial scarring in the lung bases. There is high-density material in the right posterior costophrenic sulcus, which is only partially evaluated on this study. This could be related to prior aspiration. There is diffuse volume loss in the liver with heterogeneous parenchymal density and apparent abnormal nodular enhancement along the lateral aspect of the right lobe. Nodular surface contour indicates cirrhosis, and there is a large amount of ascites present. There is mild splenomegaly. Note is made of small bilateral pleural effusions. There is no evidence of pancreatic lesion. There is heterogeneous contrast within the superior mesenteric vein and portal venous confluence, which is likely related to unopacified blood. No focal hepatic abnormality is identified. Minimal renal cortical cysts are present without evidence of solid renal mass or hydronephrosis. Unopacified urinary bladder is unremarkable. There is mild aortoiliac atherosclerotic calcification with mild diffuse anasarca. IMPRESSION: Extensive hepatic cirrhosis with nodular heterogeneous enhancement in the lateral aspect of the right lobe. This could be related to regenerating hepatic nodules; however, hepatocellular carcinoma could not be excluded. There is third spacing of fluid with large amount of ascites and mild pleural fluid and anasarca. Consideration could be given to diagnostic paracentesis. In addition, consideration could be given to MRI to further evaluate the liver. Dictated by: Dictated on workstation # [id number]
[2023-05-03] MEDS ORDERED: LIDOCAINE 1% INJ 20 ML VIAL ONE (11:18)
[2023-05-03 11:45] LABS: BODY FLUID RBC COUNT 0.001 10^6/uL; BODY FLUID WBC TOTAL COUNT 0.102 10^3/uL
[2023-05-03 11:50] LABS: BODY FLUID APPEARENCE CLEAR; BODY FLUID COLOR YELLOW; BODY FLUID SOURCE PERITON
[2023-05-03 12:01] LABS: ALBUMIN,BODY FLUID 1.1 G/DL; LDH,BODY FLUID 45 U/L; TOTAL PROTEIN,BODY FLUID 2.3 G/DL
[2023-05-03 13:59] VITALS: BP 150/74
== END 2023-05-03 13:59 | disposition home or self-care (01) ==
LOC: EDUNIT# 08:59 → ER 09:00
DX: R10.84 Generalized abdominal pain (principal); R18.8 Other ascites; R79.89 Other specified abnormal findings of blood chemistry
CPT/HCPCS: 36415; 74177; 80053; 82042; 83615; 83690; 84157; 85025; 89051